=== PATIENT | male | born 1970 | race Caucasian/White ===

== ENCOUNTER → 2017-05-05 08:58 | Outpatient (POV) | payer BC, SELFPAY ==
[2017-05-05 10:14] LABS: Basophils # 0.1 K/mm3 (0-0.2); Basophils % 0.9 % (0.1-2.0); Eosinophils # 0.2 K/mm3 (0.0-0.4); Eosinophils % 3.1 % (0.1-12.0); Hematocrit 42.9 % (42.0-52.0); Hemoglobin 14.8 g/dL (14.1-18.0); Lymphocytes # 1.4 K/mm3 (0.7-4.5); Lymphocytes % 24.8 K/mm3 (10-50); Mean Corpuscular HGB Conc 34.4 g/dL (31.8-35.4); Mean Corpuscular Hemoglobin 29.5 pg (27.0-31.2); Mean Corpuscular Volume 85.7 fl (80-94); Monocytes # 0.3 K/mm3 (0.1-1.0); Monocytes % 5.7 % (1.7-9.3); Neutrophils # 3.7 K/mm3 (1.8-7.8); Neutrophils % 65.5 % (37.0-80.0); Platelet Count 181 K/mm3 (142-424); Red Blood Count 5.01 M/mm3 (4.60-6.20); Red Cell Distribution Width 13.5 % (11.5-17.5); White Blood Count 5.6 K/mm3 (4.8-10.8)
[2017-05-05 11:21] LABS: Alanine Aminotransferase 54 U/L (12-78); Albumin Level 4.2 gm/dL (3.4-5.0); Albumin/Globulin Ratio 1.4 (1.1-1.8); Alkaline Phosphatase 54 U/L (46-116); Amylase 144 U/L (25-125); Anion Gap 12.3 mEq/L (5-15); Aspartate Amino Transferase 34 U/L (15-37); Bilirubin,Total 0.5 mg/dL (0.2-1.0); Blood Urea Nitrogen 15 mg/dL (7-18); Carbon Dioxide 29 mmol/L (21.0-32.0); Chloride 102 mmol/L (98-107); Chol/HDL Ratio 6.8 (1-3.5); Cholesterol 251 mg/dL (140-200); Creatinine,Serum 1.25 mg/dL (0.70-1.30); Estimated Glomerular Filt Rate 62 ml/min (>60); GFR (African American) 76 ML/MIN (>60); Glucose 171 mg/dL (74-106); HDL Cholesterol 37 mg/dL (27-67); Lipase 191 u/L (73-393); Potassium 4.3 mmoL/L (3.5-5.1); Sodium 139 mmol/L (136-145); Total Protein,Serum 7.2 gm/dL (6.4-8.2)
[2017-05-05 11:22] LABS: Triglycerides 531 mg/dL (30-200)
== END ==
PROVIDERS: PCP Nurse Practitioner Family; Visit Provider Nurse Practitioner Acute Care
DX: R94.5 Abnormal results of liver function studies (principal)
CPT/HCPCS: 36415; 80053; 80061; 82150; 83690; 85025

== ENCOUNTER → 2017-05-09 10:15 | Outpatient (CLI) | payer BC, SELFPAY ==
[2017-05-09 10:48] LABS: Hemoglobin A1C 6.7 % (0.0-7.0)
== END ==
PROVIDERS: PCP Nurse Practitioner Family; Visit Provider Nurse Practitioner Family
DX: E11.9 Type 2 diabetes mellitus without complications (principal)
CPT/HCPCS: 36415; 83036

== ENCOUNTER → 2017-12-16 08:08 | Outpatient (CLI) | payer BC, SELFPAY ==
[2017-12-16 09:21] LABS: Albumin Level 3.8 gm/dL (3.4-5.0); Albumin/Globulin Ratio 1.2 (1.1-1.8); Alkaline Phosphatase 73 U/L (46-116); Amylase 119 U/L (25-125); Bilirubin,Total 0.8 mg/dL (0.2-1.0); Blood Urea Nitrogen 14 mg/dL (7-18); Calcium 9.3 mg/dL (8.5-10.1); Carbon Dioxide 26 mmol/L (21.0-32.0); Chloride 103 mmol/L (98-107); Chol/HDL Ratio 10.1 (1-3.5); Cholesterol 282 mg/dL (140-200); Estimated Glomerular Filt Rate 59 ml/min (>60); GFR (African American) 72 ML/MIN (>60); Globulin 3.1 gm/dl (1.3-3.2); HDL Cholesterol 28 mg/dL (27-67); Lipase 199 u/L (73-393); Sodium 138 mmol/L (136-145); Total Protein,Serum 6.9 gm/dL (6.4-8.2)
[2017-12-16 09:27] LABS: Hemoglobin A1C 9.9 % (0.0-7.0)
[2017-12-16 09:59] LABS: Triglycerides 1216 mg/dL (30-200)
[2017-12-16 10:11] LABS: Glucose 169 mg/dL (74-106)
[2017-12-16 10:14] LABS: Alanine Aminotransferase 126 U/L (12-78); Aspartate Amino Transferase 70 U/L (15-37)
== END ==
PROVIDERS: PCP Internal Medicine Adolescent Medicine; Visit Provider Nurse Practitioner Family
DX: E78.1 Pure hyperglyceridemia (principal); E11.9 Type 2 diabetes mellitus without complications; K76.0 Fatty (change of) liver, not elsewhere classified; R74.8 Abnormal levels of other serum enzymes
CPT/HCPCS: 36415; 80053; 80061; 82150; 83036; 83690

== ENCOUNTER → 2018-05-18 08:08 | Outpatient (CLI) | payer BC, SELFPAY ==
[2018-05-18 09:25] LABS: Hemoglobin A1C 6.6 % (0.0-7.0)
[2018-05-18 09:56] LABS: Alanine Aminotransferase 62 U/L (12-78); Albumin Level 4.2 gm/dL (3.4-5.0); Albumin/Globulin Ratio 1.4 (1.1-1.8); Alkaline Phosphatase 53 U/L (46-116); Anion Gap 12.3 mEq/L (5-15); Aspartate Amino Transferase 41 U/L (15-37); Bilirubin,Total 0.5 mg/dL (0.2-1.0); Blood Urea Nitrogen 18 mg/dL (7-18); Calcium 9.5 mg/dL (8.5-10.1); Carbon Dioxide 29 mmol/L (21.0-32.0); Chloride 103 mmol/L (98-107); Chol/HDL Ratio 7.1 (1-3.5); Cholesterol 177 mg/dL (140-200); Estimated Glomerular Filt Rate 59 ml/min (>60); GFR (African American) 72 ML/MIN (>60); Globulin 2.9 gm/dl (1.3-3.2); Glucose 136 mg/dL (74-106); HDL Cholesterol 25 mg/dL (27-67); LDL Cholesterol 79 mg/dL (0-130); Potassium 4.3 mmoL/L (3.5-5.1); Sodium 140 mmol/L (136-145); Total Protein,Serum 7.1 gm/dL (6.4-8.2); Triglycerides 367 mg/dL (30-200); VLDL Cholesterol 73 mg/dL (0-40)
== END ==
PROVIDERS: Visit Provider Nurse Practitioner Family
DX: E78.2 Mixed hyperlipidemia (principal); E11.9 Type 2 diabetes mellitus without complications; I10 Essential (primary) hypertension
CPT/HCPCS: 36415; 80053; 80061; 83036

== ENCOUNTER → 2019-02-19 08:27 | Outpatient (CLI) | payer BC, SELFPAY ==
[2019-02-19 09:54] LABS: Basophils # 0.1 K/mm3 (0-0.2); Basophils % 0.9 % (0.1-2.0); Eosinophils # 0.2 K/mm3 (0.0-0.4); Eosinophils % 3.3 % (0.1-12.0); Hematocrit 42.6 % (42.0-52.0); Hemoglobin 14.2 g/dL (14.1-18.0); Lymphocytes # 1.9 K/mm3 (0.7-4.5); Lymphocytes % 29.7 % (10-50); Mean Corpuscular HGB Conc 33.2 g/dL (31.8-35.4); Mean Corpuscular Hemoglobin 29.3 pg (27.0-31.2); Mean Corpuscular Volume 88.2 fl (80-94); Monocytes # 0.3 K/mm3 (0.1-1.0); Monocytes % 4.4 % (1.7-9.3); Neutrophils # 3.9 K/mm3 (1.8-7.8); Neutrophils % 61.8 % (37.0-80.0); Platelet Count 196 K/mm3 (142-424); Red Blood Count 4.83 M/mm3 (4.60-6.20); Red Cell Distribution Width 15.1 % (11.5-17.5); White Blood Count 6.3 K/mm3 (4.8-10.8)
[2019-02-19 10:55] LABS: Blood Urea Nitrogen 14 mg/dL (7-18); Calcium 9.3 mg/dL (8.5-10.1); Glucose 177 mg/dL (74-106); Lipase 147 u/L (73-393)
[2019-02-19 10:57] LABS: Anion Gap 14.3 mEq/L (5-15); Bilirubin,Total 0.8 mg/dL (0.2-1.0); Carbon Dioxide 25 mmol/L (21.0-32.0); Chloride 104 mmol/L (98-107); Creatinine,Serum 1.32 mg/dL (0.70-1.30); Estimated Glomerular Filt Rate 58 ml/min (>60); GFR (African American) 70 ML/MIN (>60); Potassium 4.3 mmoL/L (3.5-5.1); Sodium 139 mmol/L (136-145)
[2019-02-19 10:58] LABS: Alanine Aminotransferase 78 U/L (12-78); Alkaline Phosphatase 53 U/L (46-116); Aspartate Amino Transferase 83 U/L (15-37); Chol/HDL Ratio 5.6 (1-3.5); Cholesterol 151 mg/dL (140-200); HDL Cholesterol 27 mg/dL (27-67); Triglycerides 432 mg/dL (30-200)
[2019-02-19 10:59] LABS: Albumin/Globulin Ratio 1.4 (1.1-1.8); Amylase 109 U/L (25-115); Globulin 2.9 gm/dl (1.3-3.2); Total Protein,Serum 6.9 gm/dL (6.4-8.2)
[2019-02-19 14:06] LABS: Hemoglobin A1C 7.5 % (0.0-7.0)
== END ==
PROVIDERS: Visit Provider Nurse Practitioner Family
DX: Z00.00 Encounter for general adult medical examination without abnormal findings (principal); E78.1 Pure hyperglyceridemia; E11.9 Type 2 diabetes mellitus without complications; K86.1 Other chronic pancreatitis; K76.0 Fatty (change of) liver, not elsewhere classified
CPT/HCPCS: 36415; 80053; 80061; 82150; 83036; 83690; 85025

== ENCOUNTER → 2019-06-21 09:45 | Outpatient (CLI) | payer BC, SELFPAY ==
[2019-06-21 10:31] LABS: Basophils # 0.1 K/mm3 (0-0.2); Basophils % 1.1 % (0.1-2.0); Eosinophils # 0.2 K/mm3 (0.0-0.4); Eosinophils % 3.1 % (0.1-12.0); Hematocrit 43.7 % (42.0-52.0); Hemoglobin 14.6 g/dL (14.1-18.0); Lymphocytes # 1.4 K/mm3 (0.7-4.5); Lymphocytes % 29.5 % (10-50); Mean Corpuscular HGB Conc 33.5 g/dL (31.8-35.4); Mean Corpuscular Hemoglobin 28.3 pg (27.0-31.2); Mean Corpuscular Volume 84.6 fl (80-94); Mean Platelet Volume 8.1 fl (7.4-10.4); Monocytes # 0.3 K/mm3 (0.1-1.0); Monocytes % 5.3 % (1.7-9.3); Neutrophils % 61.2 % (37.0-80.0); Platelet Count 222 K/mm3 (142-424); Red Blood Count 5.16 M/mm3 (4.60-6.20); Red Cell Distribution Width 14.8 % (11.5-17.5); White Blood Count 4.8 K/mm3 (4.8-10.8)
[2019-06-21 11:28] LABS: Chloride 100 mmol/L (98-107); Potassium 4.4 mmoL/L (3.5-5.1); Sodium 139 mmol/L (136-145)
[2019-06-21 11:31] LABS: Alanine Aminotransferase 96 U/L (12-78); Alkaline Phosphatase 62 U/L (38-126); Amylase 82 U/L (30-110); Anion Gap 17.4 mEq/L (5-15); Aspartate Amino Transferase 106 U/L (17-59); Blood Urea Nitrogen 18 mg/dl (9-20); Calcium 10.4 mg/dl (8.4-10.2); Carbon Dioxide 26 mmol/L (22.0-30.0); Estimated Glomerular Filt Rate 72 ml/min (>60); GFR (African American) 87 ML/MIN (>60); Glucose 184 mg/dl (74-100); HDL Cholesterol 27 mg/dl (40-60); Lipase 127 U/L (23-300)
[2019-06-21 11:32] LABS: Albumin Level 4.5 g/dl (3.5-5.0); Albumin/Globulin Ratio 1.8 (1.1-1.8); Chol/HDL Ratio 7.8 (1-3.5); Cholesterol 210 mg/dl (140-200); Globulin 2.5 g/dL (1.3-3.2)
[2019-06-21 11:41] LABS: Hemoglobin A1C 9.4 % (4.0-6.0)
[2019-06-21 11:43] LABS: Direct LDL Cholesterol 44.05 mg/dL (100-129)
[2019-06-22 10:27] LABS: Triglycerides 888 mg/dl (30-150)
== END ==
PROVIDERS: Visit Provider Nurse Practitioner Family
DX: E78.1 Pure hyperglyceridemia (principal); E11.9 Type 2 diabetes mellitus without complications; R74.8 Abnormal levels of other serum enzymes; K86.1 Other chronic pancreatitis
CPT/HCPCS: 36415; 80053; 80061; 82150; 83036; 83690; 85025

== ENCOUNTER → 2019-10-19 08:08 | Outpatient (POV) | payer BC, SELFPAY | PROVIDERS: PCP Internal Medicine Adolescent Medicine; Visit Provider Physician Assistant | DX: Z00.00 Encounter for general adult medical examination without abnormal findings (principal) ==

== ENCOUNTER → 2020-02-01 08:04 | Outpatient (POV) | payer BC, SELFPAY | PROVIDERS: Visit Provider Dermatology | DX: Z00.00 Encounter for general adult medical examination without abnormal findings (principal) ==

== ENCOUNTER 2020-03-26 10:40 | Emergency (ER) | payer BC, SELFPAY ==
[2020-03-26 11:00] VITALS: BP 136/95; PULSE 64; RESP 16; TEMP 37.4; O2SAT 96; BMI 32.1
--- NOTE | 2020-03-26 11:12 | HMH.EDUTC ---
[facility] [place] Disposition Clinical Impression: Exposure to COVID-19 virus Sinusitis Qualifiers: Sinusitis location: maxillary Chronicity: acute Recurrence: non-recurrent Qualified Code(s): J01.00 - Acute maxillary sinusitis, unspecified Disposition: Home, Self-Care Condition on Discharge: Good Instructions: Sinusitis, DI for Sinusitis, Preventing the Spread of Coronavirus Discharge Instructions Additional Instructions: isolate until test results are known Start antibiotic patient to take as ordered for a full length of time even if you feel better. Sinus infections do not get better overnight. It may take 2-3 days to notice much improvement so be sure to use conservative measures as discussed for symptoms. Flonase 1 spray each nostril daily to help with nasal congestion, sinus and ear pressure/information Increase fluids Humidifier/vaporizer as needed Tylenol and ibuprofen as needed for fever or pain. If symptoms do not improve or get worse return or be seen in the ER Follow-up with primary care this week Prescriptions: Fluticasone Propionate [Flonase 50mcg nasal spray 16gm] 1 spr NS DAILY 14 Days #1 bottle Transmission Status: Pending to [facility] #[id number] Azithromycin [Zithromax 250mg tab] 250 mg PO DIRECTED #6 tab Transmission Status: Pending to [facility] #[id number] Referrals: Calin Mora MD [Primary Care Provider] - Forms: Work/School Release Time of Disposition: 11:20 Medical Decision Making - Sarthak Inquiry Pt receiving controlled substance: No Vital Signs: 03/26/20 11:00 Temperature 99.4 F Temperature Source Oral Pulse Rate [Right Brachial] 64 Respiratory Rate 16 Blood Pressure [Right Arm] 136/95 H Blood Pressure Mean [Right Arm] 108 Blood Pressure Source [Right Arm] Automatic Cuff Blood Pressure Position [Right Arm] Sitting 02 Sat by Pulse Oximetry 96 Oxygen Delivery Method Room Air Orders (Tests/Meds): ORDERS Category Date Time Status Covid-19 Nasal PCR ([facility]) Routine Lab 03/26/20 11:16 Ordered [facility] [place] HPI - General Chief complaint: Urgent [facility] Stated complaint: covid exposure with symthoms Time Seen by Provider: 03/26/20 11:12 Mode of Arrival: Ambulatory Source of Information: Patient Limitations: No Limitations Description of Symptoms (Recalled from Triage Doc. by RN): PATIENT REQUESTING COVID TEST. REPORTS FLU-LIKE SYMPTOMS HEENT Symptoms (Recalled from RN notes): No Resp Symptoms (Recalled from RN notes): No Skin Symptoms (Recalled from RN notes): No MS Symptoms (Recalled from RN notes): No Functional Status (Recalled from RN notes): WNL - History of Present Illness Provider Complaint: 49 yr old male presnets for covid test. pt had a exposer both children are positive. C/O sore throat, chills, slight soa with cough, yellow nasal draiange,chest congestion and tiredness. - Related Data Previous Rx's Medication Instructions Recorded Azithromycin [Zithromax 250mg 250 mg PO DIRECTED #6 tab 03/26/20 tab] Fluticasone Propionate [Flonase 1 spr NS DAILY 14 Days #1 bottle 03/26/20 50mcg nasal spray 16gm] Allergies Allergy/AdvReac Type Severity Reaction Status Date / Time choline fenofibrate Allergy Unknown NA-NAUSEA Verified 03/26/20 11:11 [From Trilipix] pentazocine [From Talwin] Allergy Unknown S-DIFF. Verified 03/26/20 11:11 BREATHING - Worker's Comp Is this a Worker's Comp case?: No [facility] History - Hepatitis A Screen Drug use history?: No High risk sexual behaviors?: No History of sexually transmitted infection?: No Currently employed?: No Childcare worker?: No Do you have indoor plumbing?: Yes Do you have electricity?: Yes Attestation statement:: This patient has been screened for Hepatitis A risk factors. I have reviewed the patient's past medical history: Yes - Social History Alcohol Intake: never Occupational Status: other ROS Obtained: Yes Systems reviewed as appropriate & no additional c
[2020-03-26 11:18] LABS: UTC Influenza A Antigen Negative (Negative)
[2020-03-26 11:19] LABS: UTC Influenza B Antigen Negative (Negative)
[2020-03-26 11:24] VITALS: BP 136/95; PULSE 64; RESP 16; TEMP 37.4; O2SAT 96
--- NOTE | 2020-03-26 21:06 | PC.NURSE ---
PATIENT NOTIFIED OF POSITIVE COVID TEST
== END 2020-03-26 11:29 | disposition home or self-care (01) ==
PROVIDERS: Emergency Provider Nurse Practitioner Family; PCP Internal Medicine Adolescent Medicine
DX: U07.1 COVID-19 (principal)
CPT/HCPCS: 87804; 99201; U0003

== ENCOUNTER → 2020-03-28 15:09 | Outpatient (CLI) | payer BC, SELFPAY ==
--- NOTE | 2020-03-28 15:14 | XR_ITS ---
PROCEDURE: XR CHEST PORTABLE CLINICAL HISTORY: COVID 19 Shortness of breath, cough COMPARISON: No exams were available for comparison FINDINGS: The cardiomediastinal silhouette and pulmonary vascularity are within normal limits. There is patchy infiltrate present in the right upper and right lower lobe consistent with pneumonia having a somewhat ground-glass attenuation which may be seen with Covid19 pneumonia. There may be some patchy infiltrate also in the left lower lobe. No acute bony abnormalities. IMPRESSION: Right upper and right lower lobe pneumonia with possible pneumonia in the left lower lobe Dictated by: Maximiliano Estrada 03/28/2020 15:51 Maximiliano Estrada in [place] 03/28/2020 15:51
== END ==
PROVIDERS: PCP Nurse Practitioner Family; Visit Provider Nurse Practitioner Family
DX: Z20.828 Contact with and (suspected) exposure to other viral communicable diseases (principal); U07.1 COVID-19; R06.02 Shortness of breath
CPT/HCPCS: 71045

== ENCOUNTER 2020-04-04 15:06 | Observation (INO) | payer BC, SELFPAY ==
[2020-04-04 14:20] LABS: Basophils # 0.2 K/mm3 (0-0.2); Basophils % 1.3 % (0.1-2.0); Eosinophils # 0.3 K/mm3 (0.0-0.4); Hematocrit 45.2 % (42.0-52.0); Hemoglobin 16.8 g/dL (14.1-18.0); Lymphocytes # 1.9 K/mm3 (0.7-4.5); Lymphocytes % 13.4 % (10-50); Mean Corpuscular HGB Conc 37.1 g/dL (31.8-35.4); Mean Corpuscular Hemoglobin 30.8 pg (27.0-31.2); Mean Platelet Volume 8.2 fl (7.4-10.4); Monocytes # 0.5 K/mm3 (0.1-1.0); Monocytes % 3.4 % (1.7-9.3); Neutrophils # 11.6 K/mm3 (1.8-7.8); Platelet Count 522 K/mm3 (142-424); Red Blood Count 5.45 M/mm3 (4.60-6.20); Red Cell Distribution Width 15.4 % (11.5-17.5); White Blood Count 14.5 K/mm3 (4.8-10.8)
[2020-04-04 14:25] LABS: Chloride 93 mmol/L (98-107); Potassium 4.3 mmoL/L (3.5-5.1); Sodium 131 mmol/L (136-145)
[2020-04-04 14:28] LABS: Alanine Aminotransferase 43 U/L (12-78); Albumin Level 4.1 g/dl (3.5-5.0); Albumin/Globulin Ratio 1.1 (1.1-1.8); Alkaline Phosphatase 99 U/L (38-126); Anion Gap 15.3 mEq/L (5-15); Aspartate Amino Transferase 72 U/L (17-59); Bilirubin,Total 1.2 mg/dl (0.2-1.3); Blood Urea Nitrogen 28 mg/dl (9-20); Calcium 9.9 mg/dl (8.4-10.2); Carbon Dioxide 27 mmol/L (22.0-30.0); Estimated Glomerular Filt Rate 71 ml/min (>60); GFR (African American) 86 ML/MIN (>60); Globulin 3.9 g/dL (1.3-3.2); Glucose 397 mg/dl (74-100)
[2020-04-04 14:32] LABS: Hemoglobin A1C 10.2 % (4.0-6.0)
[2020-04-04 14:51] LABS: Acetone, Serum (Rapid) None Detected (None Detect)
[2020-04-04 15:40] VITALS: BP 133/79; PULSE 80; RESP 18; TEMP 36.4; O2SAT 96; BMI 29.7
--- NOTE | 2020-04-04 15:44 | XR_ITS ---
PROCEDURE: XR CHEST 2V CLINICAL HISTORY: pneumonia Follow-up pneumonia, history of Covid19 COMPARISON: CR XR CHEST PORTABLE from 03/28/2020 FINDINGS: The cardiomediastinal silhouette and pulmonary vascularity are within normal limits. Atelectasis or infiltrate is present in the right lower lobe not significantly changed. Faint nodular densities are present in the right upper lobe and could be due to nodular areas of consolidation or pulmonary nodules. There is some nodularity also noted in the left perihilar region. There is also faint infiltrate in the left lower lobe not significantly changed. No acute bony findings. IMPRESSION: Persistent right lower lobe atelectasis and/or infiltrate with nodularity in the right upper lobe and infiltrate in the right lower lobe overall not significantly changed. Follow-up suggested. If the nodular areas do not resolve then CT will be needed for further evaluation. Dictated by: Maximiliano Estrada MD 04/04/2020 21:45 Maximiliano Estrada MD in [place] 04/04/2020 21:45
--- NOTE | 2020-04-04 16:04 | HMH.PHAVTE ---
[facility] Pharmacy VTE Monitoring - Patient Demographics Admission date: 04/04/20 Report Date: 04/04/20 Time: 16:04 Allergies/Adverse Reactions: Patient Allergies choline fenofibrate [From Trilipix] Allergy (Unknown, Verified 03/26/20 11:11) NA-NAUSEA pentazocine [From Talwin] Allergy (Unknown, Verified 03/26/20 11:11) S-DIFF. BREATHING Height: 1.88 m Weight: 104.893 kg - VTE Risk Labs: VTE Related Lab Results Hgb 16.8 g/dL (14.1-18.0) 04/04/20 14:03 Hct 45.2 % (42.0-52.0) 04/04/20 14:03 Plt Count 522 K/mm3 (142-424) H 04/04/20 14:03 BUN 28 mg/dl (9-20) H 04/04/20 14:03 Creatinine 1.10 mg/dl (0.66-1.25) 04/04/20 14:03 - Prophylaxis Types of VTE Prophylaxis: TEDS Knee High Location of Applied Device: Bilateral Lower Extremeties
--- NOTE | 2020-04-04 16:30 | PC.NURSE ---
Dr. Austin aware of IgG and IgM positive. Nasal swab ordered.
[2020-04-04 17:00] VITALS: O2SAT 96
--- NOTE | 2020-04-04 17:05 | HMH.HP ---
*Admission Date: 04/04/20 <Elizabeth Jean-Baptiste 04/04/20 17:25> *Chief complaint: weakness, polyuria, polydipsia, dizziness <Elizabeth Jean-Baptiste 04/04/20 17:25> *History of present illness: 49 year old male with a h/o DM on metformin, recurrent pancreatitis r/t hypertriglyceridemia, non alcoholic fatty liver disease, HTN, and anxiety who was diagnosed with COVID-19 and subsequent pneumonia presented to PCP office with increased weakness, dizziness, polyuria, polydipsia and FSBS >400. Patient dx with COVID-19 at [facility] on 03/26 following a week of symptoms and known exposure. He had worsening shortness of breath and persistent fevers, CXR on 03/28 showed RUL, RLL and LLL pneumonia. He was started on levaquin and dexamethasone. Patient reports shortness of breath and chest congestion have improved, fevers have resolved. He has developed increased weakness and dizziness over the last few days. Feels foggy and not safe to drive. FSBS > 400 for several days, urinating every hour and feels dry as a bone. Seen in the office with approx 15 pound weight loss, low normal b/p and glucose 400. A1c 10.2. BUN 28, NA 131, serum acetone negative, WBC 14- likely related to steroids. Patient was admitted for IV hydration, insulin initiation and further evaluation. <Elizabeth Jean-Baptiste 04/04/20 17:25> [facility] History I have reviewed the patient's past medical history: Yes <Elizabeth Jean-Baptiste 04/04/20 17:25> Medical History: Reports:: Hyperlipidemia, Hypertension <Elizabeth Jean-Baptiste 04/04/20 17:25> *Have you ever received a pneumonia vaccine?: No <Elizabeth Jean-Baptiste 04/04/20 17:25> *Have you received a flu vaccine this season?: No <Elizabeth Jean-Baptiste 04/04/20 17:25> Other Medical History: Reports: Liver Disease <Elizabeth Jean-Baptiste 04/04/20 17:25> Comment:: recurrent pancreatitis <EstivenElizabeth 04/04/20 17:25> Other Surgeries: Yes: Cholecystectomy, Other (nasal septal repair, hydrocele and inguinal hernia repair) <EstivenElizabeth 04/04/20 17:25> - *Social History Last grade of school completed: Advanced degree <[facility] 04/04/20 17:25> Smoking Status: Unknown if ever smoked <[facility] 04/04/20 17:25> Alcohol Intake: never <Elizabeth Jean-Baptiste 04/04/20 17:25> *Occupational Status:: other <[facility] 04/04/20 17:25> *Travel in the last 8 weeks: None <[facility] 04/04/20 17:25> Family Hx:: Coronary Artery Disease, Diabetes, Hypertension <[facility] 04/04/20 17:25> Review of Systems - Review of Systems Review of systems:: pertinent systems reviewed and negative unless documented below <Elizabeth Jean-Baptiste 04/04/20 17:25> - Constitutional Reports fatigue, Reports lack of energy, Reports malaise, Reports weakness, Reports weight loss <[facility] 04/04/20 17:25> - *Respiratory Reports cough <[facility] 04/04/20 17:25> - *Neurologic Reports dizziness, Reports weakness, Reports other ( foggy ) <[facility] 04/04/20 17:25> Meds Home Medications Medication Instructions Recorded Confirmed Type Atorvastatin Calcium [Lipitor 40mg 40 mg PO DAILY 04/04/20 04/04/20 History Tab] Fenofibrate 160 mg PO DAILY 04/04/20 04/04/20 History Metformin HCl [Metformin 1000mg 1,000 mg PO BID 04/04/20 04/04/20 History Tablets] lisinopriL [Lisinopril 5mg 5 mg PO DAILY 04/04/20 04/04/20 History Tablet] <Boris Austin - 04/04/20 17:54> Allergies Allergy/AdvReac Type Severity Reaction Status Date / Time choline fenofibrate Allergy Unknown NA-NAUSEA Verified 03/26/20 11:11 [From Trilipix] pentazocine [From Talwin] Allergy Unknown S-DIFF. Verified 03/26/20 11:11 BREATHING <Boris Austin - 04/04/20 17:54> Exam Vital signs and Labs for Last 24 Hours: Temp Pulse Resp BP Pulse Ox 97.6 F 80 18 133/79 96 04/04/20 15:40 04/04/20 15:40 04/04/20 15:40 04/04/20 15:40 04/04/20 15:40 Laboratory Results - last 24 hr 04/04/20 14:03: Sodium 131 L, Potassium 4.3, Chloride 93 L, Carbon Dioxide 27, Anion Gap 15.3 H, BUN 28 H, Creatinine 1.10
[2020-04-04 17:20] LABS: Coronavirus 19 IgG Antibody Positive (Negative); Coronavirus 19 IgM Antibody Positive (Negative)
[2020-04-04 19:10] VITALS: BP 121/69; PULSE 89; RESP 16; TEMP 37.1; O2SAT 94
[2020-04-04 20:32] LABS: POC Glucose,Bedside 292 (70-110)
[2020-04-05] VITALS: BP 107/67; PULSE 67; RESP 16; TEMP 36.4; O2SAT 95
[2020-04-05 03:34] VITALS: BP 106/65; PULSE 69; RESP 16; TEMP 36.8; O2SAT 95
--- NOTE | 2020-04-05 03:36 | PC.NURSE ---
Pt is A&O x4 and has slept well throughout the night. Patient expressed wanting to learn about his new insulin regimen and how to administer properly. He was verbally taught and provided teach back on correct syringe use and placement. Pt has been on room air all shift with O2 around 95. Lungs sounds are diminished. Pt reports feeling better and hoping to go home today. VSS, call light in reach.
[2020-04-05 05:00] VITALS: BMI 30.2
[2020-04-05 06:10] LABS: POC Glucose,Bedside 274 (70-110)
[2020-04-05 07:29] LABS: Basophils # 0.1 K/mm3 (0-0.2); Basophils % 0.7 % (0.1-2.0); Eosinophils # 0.2 K/mm3 (0.0-0.4); Eosinophils % 2.4 % (0.1-12.0); Hematocrit 37.3 % (42.0-52.0); Lymphocytes # 1.6 K/mm3 (0.7-4.5); Lymphocytes % 21.7 % (10-50); Mean Corpuscular HGB Conc 35.5 g/dL (31.8-35.4); Mean Corpuscular Hemoglobin 29.4 pg (27.0-31.2); Mean Corpuscular Volume 82.6 fl (80-94); Mean Platelet Volume 8.2 fl (7.4-10.4); Monocytes # 0.3 K/mm3 (0.1-1.0); Neutrophils # 5.1 K/mm3 (1.8-7.8); Neutrophils % 71.2 % (37.0-80.0); Platelet Count 299 K/mm3 (142-424); Red Blood Count 4.51 M/mm3 (4.60-6.20); Red Cell Distribution Width 15.3 % (11.5-17.5); White Blood Count 7.2 K/mm3 (4.8-10.8)
[2020-04-05 07:35] LABS: Hemoglobin 13.2 g/dL (14.1-18.0)
[2020-04-05 07:42] LABS: Chloride 100 mmol/L (98-107); Potassium 4.2 mmoL/L (3.5-5.1); Sodium 132 mmol/L (136-145)
[2020-04-05 07:44] LABS: Blood Urea Nitrogen 19 mg/dl (9-20); Creatinine Clearance Estimated 152 mL/min (50-200); Estimated Glomerular Filt Rate 90 ml/min (>60); GFR (African American) 109 ML/MIN (>60)
[2020-04-05 07:45] LABS: Alanine Aminotransferase 43 U/L (12-78); Albumin Level 3.1 g/dl (3.5-5.0); Albumin/Globulin Ratio 1.1 (1.1-1.8); Alkaline Phosphatase 61 U/L (38-126); Anion Gap 7.2 mEq/L (5-15); Aspartate Amino Transferase 76 U/L (17-59); Bilirubin,Total 0.7 mg/dl (0.2-1.3); Carbon Dioxide 29 mmol/L (22.0-30.0); Globulin 2.9 g/dL (1.3-3.2); Glucose 277 mg/dl (74-100)
[2020-04-05 07:50] VITALS: BP 122/66; PULSE 70; RESP 20; TEMP 36.8; O2SAT 95
--- NOTE | 2020-04-05 07:50 | PC.NURSE ---
Called Lab @ 07 to verify status of COVID PCR, was told at this time pt was positive. Dr. Mora notified at 0749 of this and stated no worries not an infectious issue . House notified of these events. Pt is in Airborne and contact precautions.
[2020-04-05 07:51] LABS: Calcium 8.7 mg/dl (8.4-10.2)
[2020-04-05 08:00] VITALS: O2SAT 95
--- NOTE | 2020-04-05 08:28 | HMH.DCSUM ---
General - General Admission date:: 04/04/20 Discharge date: 04/05/20 HPI HPI: 49 year old male with a h/o DM on metformin, recurrent pancreatitis r/t hypertriglyceridemia, non alcoholic fatty liver disease, HTN, and anxiety who was diagnosed with COVID-19 and subsequent pneumonia presented to PCP office with increased weakness, dizziness, polyuria, polydipsia and FSBS >400. Patient dx with COVID-19 at [facility] on 03/26 following a week of symptoms and known exposure. He had worsening shortness of breath and persistent fevers, CXR on 03/28 showed RUL, RLL and LLL pneumonia. He was started on levaquin and dexamethasone. Patient reports shortness of breath and chest congestion have improved, fevers have resolved. He has developed increased weakness and dizziness over the last few days. Feels foggy and not safe to drive. FSBS > 400 for several days, urinating every hour and feels dry as a bone. Seen in the office with approx 15 pound weight loss, low normal b/p and glucose 400. A1c 10.2. BUN 28, NA 131, serum acetone negative, WBC 14- likely related to steroids. Patient was admitted for IV hydration, insulin initiation and further evaluation. Hospital Course Hospital Course: Patient was admitted, hydrated and felt much better almost immediately. He was started on glargine insulin at 10 units last night, tolerated this well and this morning his glucose levels are down in the 200 range. He is eating and drinking well with no respiratory distress, nausea or vomiting and feels much more energetic. Long discussion with patient about insulin, need for enhanced dietary control of his triglycerides and diabetic issues. Plan okay to discharge home today with insulin therapy as noted. We will add purified fish oil to his regimen for triglycerides and we will see him in short-term follow-up next week. Recommended dietary consultation which will happen before discharge and recommended checking glucose levels twice daily at home and following up in the office at that point. No further respiratory symptoms overnight. Breathing easily this morning. Objective Vital signs: Temp Pulse Resp BP Pulse Ox 98.2 F 70 20 122/66 95 04/05/20 07:50 04/05/20 07:50 04/05/20 07:50 04/05/20 07:50 04/05/20 07:50 no acute distress - *Routine HEENT Exam Head: Present: normocephalic Eye: Present: EOMI, PERRL ENT: Present: mucous membranes moist - *Routine Neck Exam Present: supple - *Routine Respiratory Exam Present: CTA bilaterally - *Routine Cardiovascular Exam Present: RRR - *Routine Abdominal Exam Present: soft, normoactive bowel sounds. Absent: tenderness - *Routine Extremities Exam Absent: cyanosis, clubbing, edema - *Routine Skin Exam Present: warm. Absent: rash - Detailed Eye Exam Eyelids: Bilateral normal inspection Results Labs on day of discharge: Labs from last 24 hours 04/05/20 04/05/20 04/05/20 07:03 07:03 06:04 WBC 7.2 D RBC 4.51 L Hgb 13.2 L D Hct 37.3 L MCV 82.6 MCH 29.4 MCHC 35.5 H RDW 15.3 Plt Count 299 D MPV 8.2 Neut % (Auto) 71.2 Lymph % (Auto) 21.7 [place] % (Auto) 4.0 Eos % (Auto) 2.4 Baso % (Auto) 0.7 Neut # (Auto) 5.1 Lymph # (Auto) 1.6 [place] # (Auto) 0.3 Eos # (Auto) 0.2 Baso # (Auto) 0.1 Sodium 132 L Potassium 4.2 Chloride 100 Carbon Dioxide 29 Anion Gap 7.2 BUN 19 D Creatinine 0.90 Estimated Creat Clear 152 Estimated GFR 90 Est GFR ( Amer) 109 D Glucose 277 H D POC Glucose 274 H Hemoglobin A1c Calcium 8.7 D Total Bilirubin 0.7 AST 76 H ALT 43 Alkaline Phosphatase 61 Total Protein 6.0 L Albumin 3.1 L D Globulin 2.9 Albumin/Globulin Ratio 1.1 Acetone Level SARS-CoV-2 IgG Ab (Rapid) SARS-CoV-2 IgM Ab (Rapid) 04/04/20 04/04/20 04/04/20 20:22 16:05 14:03 WBC 14.5 H RBC 5.45 Hgb 16.8 Hct 45.2 MCV
--- NOTE | 2020-04-05 08:29 | HMH.PHAINT ---
Medication reconciliation completed using pharmacy claims data.
--- NOTE | 2020-04-05 09:34 | PC.NURSE ---
[employer] Rope Maker educated pt on his diet. Pt was educated on how to administer insulin yesterday by this nurse and last night by Deborah Castro RN. Pt states he has no questions at this time about insulin. I told him to call back with any concerns or questions. Pt received pneumonia vaccine but not the flu vaccine due to having covid per Dr. Mora. Pt tolerated well. Given in L deltiod. Education given. Pt provided with discharge instructions, follow up appointment, and home meds. Pt verbalized understanding. IV removed with catheter intact. Koban and 4x4s applied.
--- NOTE | 2020-04-05 09:34 | DIET.NUTRFU ---
Nutrition Consult completed- pt given verbal and written diet education for DM and hypertriglyceridemia. Encouraged pt to f/u through OP counseling.
[2020-04-05 09:37] VITALS: BMI 30.2
== END 2020-04-05 09:33 | disposition home or self-care (01) ==
LOC: 2ND 15:13
PROVIDERS: Admitting Provider Internal Medicine Adolescent Medicine; PCP Nurse Practitioner Family; Visit Provider Internal Medicine Adolescent Medicine
DX: U07.1 COVID-19 (principal); J12.89 Other viral pneumonia; E11.9 Type 2 diabetes mellitus without complications; Z79.84 Long term (current) use of oral hypoglycemic drugs; Z79.899 Other long term (current) drug therapy
CPT/HCPCS: 36415; 71046; 80053; 82009; 82962; 83036; 85025; 86328; 90732; G0378; U0003

== ENCOUNTER → 2020-10-31 08:25 | Outpatient (CLI) | payer BC, SELFPAY ==
[2020-10-31 08:42] LABS: Basophils # 0.1 K/mm3 (0-0.2); Basophils % 1.3 % (0.1-2.0); Eosinophils # 0.2 K/mm3 (0.0-0.4); Eosinophils % 2.9 % (0.1-12.0); Hematocrit 43.1 % (42.0-52.0); Hemoglobin 15.3 g/dL (14.1-18.0); Lymphocytes # 1.6 K/mm3 (0.7-4.5); Lymphocytes % 28.1 % (10-50); Mean Corpuscular HGB Conc 35.4 g/dL (31.8-35.4); Mean Corpuscular Hemoglobin 28.3 pg (27.0-31.2); Mean Corpuscular Volume 79.8 fl (80-94); Mean Platelet Volume 8.4 fl (7.4-10.4); Monocytes # 0.2 K/mm3 (0.1-1.0); Monocytes % 4.3 % (1.7-9.3); Neutrophils # 3.6 K/mm3 (1.8-7.8); Neutrophils % 63.5 % (37.0-80.0); Platelet Count 237 K/mm3 (142-424); Red Cell Distribution Width 15.6 % (11.5-17.5); White Blood Count 5.7 K/mm3 (4.8-10.8)
[2020-10-31 09:03] LABS: Alanine Aminotransferase 62 U/L (12-78); Albumin Level 4.5 g/dl (3.5-5.0); Albumin/Globulin Ratio 1.7 (1.1-1.8); Alkaline Phosphatase 64 U/L (38-126); Amylase 72 U/L (30-110); Anion Gap 16.6 mEq/L (5-15); Aspartate Amino Transferase 82 U/L (17-59); Bilirubin,Total 0.9 mg/dl (0.2-1.3); Blood Urea Nitrogen 14 mg/dl (9-20); Calcium 9.4 mg/dl (8.4-10.2); Carbon Dioxide 20 mmol/L (22.0-30.0); Chloride 105 mmol/L (98-107); Chol/HDL Ratio 7.3 (1-3.5); Cholesterol 198 mg/dl (140-200); Estimated Glomerular Filt Rate 71 ml/min (>60); GFR (African American) 86 ML/MIN (>60); Globulin 2.6 g/dL (1.3-3.2); Glucose 265 mg/dl (74-100); HDL Cholesterol 27 mg/dl (40-60); Lipase 124 U/L (23-300); Potassium 4.6 mmoL/L (3.5-5.1); Sodium 137 mmol/L (136-145); Total Protein,Serum 7.1 g/dl (6.3-8.2)
[2020-10-31 09:11] LABS: Triglycerides 1413 mg/dl (30-150)
[2020-10-31 09:13] LABS: Direct LDL Cholesterol 32.84 mg/dL (100-129)
== END ==
PROVIDERS: Visit Provider Nurse Practitioner Family
DX: E11.9 Type 2 diabetes mellitus without complications (principal); I10 Essential (primary) hypertension; K86.1 Other chronic pancreatitis
CPT/HCPCS: 36415; 80053; 80061; 82150; 83036; 83690; 85025

== ENCOUNTER → 2020-11-13 14:53 | Outpatient (CLI) | payer BC, SELFPAY | PROVIDERS: PCP Nurse Practitioner Family; Visit Provider Nurse Practitioner Family | DX: Z71.3 Dietary counseling and surveillance (principal); E11.9 Type 2 diabetes mellitus without complications | CPT/HCPCS: 97802 ==

== ENCOUNTER → 2020-11-21 08:06 | Outpatient (CLI) | payer BC, SELFPAY ==
--- NOTE | 2020-11-21 08:21 | MR_ITS ---
PROCEDURE: MR ABDOMEN WO/W CON CLINICAL INDICATION: RECURRENT PANCREATITIS COMPARISON: MR ABC MRI-ABD W/WO from 01/31/2017 TECHNIQUE: Routine multiplanar multi echo sequences are performed without and with gadolinium enhancement. FINDINGS: The liver, spleen, adrenal glands, and pancreas has an unremarkable appearance. There is no stranding of the peripancreatic. No peripancreatic fluid collections. Unremarkable appearing aorta. No renal mass apparent. No hydronephrosis. There has been a prior cholecystectomy. Pre and post enhanced images are obtained. No pancreatic mass apparent MRCP: There has been a prior cholecystectomy. No biliary dilatation. Common bile duct and pancreatic duct are normal in caliber. No retained common duct stones or strictures IMPRESSION: Negative MRI of the abdomen. No evidence of pancreatitis or pancreatic mass or ductal dilatation. Prior cholecystectomy otherwise negative MRCP Dictated by: Maximiliano Estrada MD 11/23/2020 14:28 Maximiliano Estrada MD in [place] 11/23/2020 14:28
[2020-11-21 08:28] LABS: Chloride 104 mmol/L (98-107)
[2020-11-21 08:29] LABS: Potassium 4.3 mmoL/L (3.5-5.1); Sodium 139 mmol/L (136-145)
[2020-11-21 08:31] LABS: Alanine Aminotransferase 58 U/L (12-78); Albumin Level 4.5 g/dl (3.5-5.0); Albumin/Globulin Ratio 1.7 (1.1-1.8); Alkaline Phosphatase 53 U/L (38-126); Anion Gap 13.3 mEq/L (5-15); Aspartate Amino Transferase 55 U/L (17-59); Bilirubin,Total 0.6 mg/dl (0.2-1.3); Blood Urea Nitrogen 21 mg/dl (9-20); Carbon Dioxide 26 mmol/L (22.0-30.0); Estimated Glomerular Filt Rate 59 ml/min (>60); GFR (African American) 71 ML/MIN (>60); Globulin 2.6 g/dL (1.3-3.2); Total Protein,Serum 7.1 g/dl (6.3-8.2)
[2020-11-21 08:32] LABS: Calcium 9.6 mg/dl (8.4-10.2); Glucose 138 mg/dl (74-100)
== END ==
PROVIDERS: PCP Nurse Practitioner Family; Visit Provider Nurse Practitioner Family
DX: K85.90 Acute pancreatitis without necrosis or infection, unspecified (principal); E78.1 Pure hyperglyceridemia; R14.0 Abdominal distension (gaseous)
CPT/HCPCS: 36415; 74183; 76376; 80053; A9576

== ENCOUNTER → 2020-12-26 08:55 | Outpatient (POV) | payer BC, SELFPAY | PROVIDERS: Visit Provider Dermatology | DX: Z00.00 Encounter for general adult medical examination without abnormal findings (principal) ==

== ENCOUNTER → 2021-04-09 08:50 | Outpatient (CLI) | payer BC, SELFPAY ==
[2021-04-09 10:10] LABS: Chloride 103 mmol/L (98-107); Potassium 4.2 mmoL/L (3.5-5.1); Sodium 138 mmol/L (136-145)
[2021-04-09 10:12] LABS: Amylase 79 U/L (30-110); Blood Urea Nitrogen 14 mg/dl (9-20); Estimated Glomerular Filt Rate 71 ml/min (>60); GFR (African American) 86 ML/MIN (>60)
[2021-04-09 10:13] LABS: Alanine Aminotransferase 59 U/L (12-78); Albumin Level 4.5 g/dl (3.5-5.0); Albumin/Globulin Ratio 1.8 (1.1-1.8); Alkaline Phosphatase 51 U/L (38-126); Anion Gap 16.2 mEq/L (5-15); Aspartate Amino Transferase 82 U/L (17-59); Bilirubin,Total 0.6 mg/dl (0.2-1.3); Carbon Dioxide 23 mmol/L (22.0-30.0); Chol/HDL Ratio 5.5 (1-3.5); Cholesterol 160 mg/dl (140-200); Globulin 2.5 g/dL (1.3-3.2); Glucose 201 mg/dl (74-100); HDL Cholesterol 29 mg/dl (40-60); Lipase 172 U/L (23-300)
[2021-04-09 10:24] LABS: Direct LDL Cholesterol 47.27 mg/dL (100-129)
[2021-04-09 10:25] LABS: Triglycerides 581 mg/dl (30-150)
== END ==
PROVIDERS: Visit Provider Nurse Practitioner Family
DX: E11.9 Type 2 diabetes mellitus without complications (principal); E78.1 Pure hyperglyceridemia; K86.1 Other chronic pancreatitis; Z79.84 Long term (current) use of oral hypoglycemic drugs
CPT/HCPCS: 36415; 80053; 80061; 82150; 83036; 83690

== ENCOUNTER 2021-08-28 08:19 | Emergency (ER) | payer BC, SELFPAY ==
[2021-08-28] VITALS (7 sets, daily range): BP systolic 114–143; BP diastolic 65–97; PULSE 61–84; RESP 16; TEMP 36.6; O2SAT 93–98; BMI 32.7
--- NOTE | 2021-08-28 08:22 | PC.NURSE ---
ROSS Gaines at BS
--- NOTE | 2021-08-28 08:27 | CT_ITS ---
FINAL REPORT CLINICAL HISTORY: RLQ pain COMPARISON: January 03, 2017 FINDINGS: Technique: The patient was injected with intravenous contrast. Axial images through the abdomen and pelvis were performed. This study was performed with techniques to keep radiation doses as low as reasonably achievable (ALARA). Individualized dose reduction techniques using automated exposure control or adjustment of mA and/or kV according to the patient's size were employed. Abdomen: There is mild left base atelectasis or scarring. There is mild fatty infiltration of the liver. The liver has a mildly lobular contour which may represent cirrhosis. The portal vein is enlarged measuring 18 mm in diameter. The gallbladder is surgically absent. There is splenomegaly with the spleen measuring 15 cm in length. The adrenals are normal. The pancreas is unremarkable. There are several less than 3 mm bilateral nonobstructing renal stones. There is mild right hydronephrosis and hydroureter secondary to a 2 mm right UVJ stone . The aorta is normal in caliber. There is no free fluid or adenopathy. Pelvis: The appendix is normal. The urinary bladder is unremarkable. There is no free fluid or adenopathy. There are several phleboliths in the pelvis. Again noted is stranding of the small bowel mesentery. There is several borderline size lymph nodes which may represent mesenteric panniculitis or may be reactive IMPRESSION: Mild right hydronephrosis and hydroureter secondary to a 2 mm right UVJ stone. Small renal stones. Findings consistent with cirrhosis and portal hypertension. Reviewed, Interpreted and Dictated by Sage Sullivan III, MD Transcribed by Deidre English Authenticated by Sage Sullivan III, MD on 08/28/2021 09:55:49 AM [facility]
--- NOTE | 2021-08-28 08:36 | HMH.EDGENADL ---
ED Disposition Clinical Impression: Right kidney stone Disposition: Home, Self-Care Condition on Discharge: Good Instructions: DI for Kidney Stones Additional Instructions: You have been evaluated for right flank pain. Diagnosed with a 2 mm kidney stone. Please take ibuprofen every 4-6 hours. Take [place] for breakthrough pain. Zofran for nausea. Flomax will help dilate the ureter. Follow-up with urology, Dr. Omer. Return to the emergency department at once for any new or worsening symptoms, worsening pain, vomiting, fevers, other concerns. Prescriptions: Hydrocod/Acet 5/325 mg [[place] 5/325mg tablet] 1 tab PO Q6HP PRN #12 tab PRN Reason: Severe Pain Transmission Status: Received by [facility] #[id number] Tamsulosin HCl [Flomax 0.4mg capsule] 0.4 mg PO HS #5 cap Transmission Status: Received by [facility] #[id number] Ibuprofen [Ibuprofen 600mg Tablet] 600 mg PO Q6 PRN #30 tab PRN Reason: Mild Pain Transmission Status: Received by [facility] #[id number] Ondansetron [Zofran 4mg ODT] 4 mg PO TIDP PRN #12 tab PRN Reason: Nausea Transmission Status: Received by [facility] #[id number] Referrals: Calin Mora MD [Primary Care Provider] - Néstor Omer MD [Staff Physician] - Time of Disposition: 09:59 - Critical Care Critical Care Time: No Attestation: On 08/28/21, the high probability of a clinically significant, sudden or life threatening deterioration of the following system(s) required my full and direct attention, intervention and personal management. The time I documented below is in addition to time spent performing reported procedures but includes the following listed in this critical care notation. Medical Decision Making - Medical Records Medical records reviewed: Yes: I reviewed the patient's medical records. - Sarthak Inquiry Pt receiving controlled substance: No Vital Signs: 08/28/21 08:20 08/28/21 08:30 08/28/21 09:16 Temperature 97.9 F Temperature Source Oral Pulse Rate 83 71 Pulse Rate [Right Radial] 84 Respiratory Rate 16 Blood Pressure 134/95 H 129/85 Blood Pressure [Right Arm] 143/97 H Blood Pressure Mean [Right Arm] 112 Blood Pressure Source Automatic Cuff Automatic Cuff Blood Pressure Source [Right Arm] Automatic Cuff Blood Pressure Position Sitting Sitting Blood Pressure Position [Right Arm] Sitting 02 Sat by Pulse Oximetry 98 94 L 96 Oxygen Delivery Method Room Air Room Air Room Air 08/28/21 09:17 08/28/21 09:30 Temperature Temperature Source Pulse Rate 71 69 Pulse Rate [Right Radial] Respiratory Rate Blood Pressure 129/85 133/79 Blood Pressure [Right Arm] Blood Pressure Mean [Right Arm] Blood Pressure Source Automatic Cuff Automatic Cuff Blood Pressure Source [Right Arm] Blood Pressure Position Sitting Sitting Blood Pressure Position [Right Arm] 02 Sat by Pulse Oximetry 96 93 L Oxygen Delivery Method Room Air Room Air - Lab Data Lab Results 08/28/21 08:34: WBC 5.0, RBC 5.37, Hgb 15.1, Hct 43.9, MCV 81.7, MCH 28.2, MCHC 34.5, RDW 15.1, Plt Count 204, MPV 8.8, Neut % (Auto) 61.3, Lymph % (Auto) 28.9, [place] % (Auto) 5.1, Eos % (Auto) 2.5, Baso % (Auto) 2.2 H, Neut # (Auto) 3.1, Lymph # (Auto) 1.4, [place] # (Auto) 0.3, Eos # (Auto) 0.1, Baso # (Auto) 0.1 08/28/21 08:34: Sodium 136, Potassium 4.0, Chloride 102, Carbon Dioxide 27, Anion Gap 11.0, BUN 17, Creatinine 1.00, Estimated Creat Clear 145, Estimated GFR 79, Est GFR ( Amer) 96, Glucose 258 H, Calcium 9.6, Total Bilirubin 0.9, AST 63 H, ALT 52, Alkaline Phosphatase 66, Total Protein 6.8, Albumin 4.2, Globulin 2.6, Albumin/Globulin Ratio 1.6, Lipase 182 08/28/21 10:38: Urine Color Yellow, Urine Appearance Clear, Urine pH 6.0, Ur Specific Bar[place] 1.010, Urine Protein Negative, Urine Glucose (UA) 1+, Urine Ketones Negative, Urine Blood 2+, Urine Nitrate Negative, Urine Bilirubin Negative, Urine Urobilinogen 0.2, Ur Leukocyte Esterase Negat
[2021-08-28 08:51] LABS: Basophils # 0.1 K/mm3 (0-0.2); Basophils % 2.2 % (0.1-2.0); Eosinophils # 0.1 K/mm3 (0.0-0.4); Eosinophils % 2.5 % (0.1-12.0); Hematocrit 43.9 % (42.0-52.0); Hemoglobin 15.1 g/dL (14.1-18.0); Lymphocytes # 1.4 K/mm3 (0.7-4.5); Lymphocytes % 28.9 % (10-50); Mean Corpuscular HGB Conc 34.5 g/dL (31.8-35.4); Mean Corpuscular Hemoglobin 28.2 pg (27.0-31.2); Mean Corpuscular Volume 81.7 fl (80-94); Mean Platelet Volume 8.8 fl (7.4-10.4); Monocytes # 0.3 K/mm3 (0.1-1.0); Monocytes % 5.1 % (1.7-9.3); Neutrophils # 3.1 K/mm3 (1.8-7.8); Neutrophils % 61.3 % (37.0-80.0); Platelet Count 204 K/mm3 (142-424); Red Blood Count 5.37 M/mm3 (4.60-6.20); Red Cell Distribution Width 15.1 % (11.5-17.5)
[2021-08-28 08:53] LABS: Chloride 102 mmol/L (98-107); Sodium 136 mmol/L (136-145)
[2021-08-28 08:56] LABS: Alanine Aminotransferase 52 U/L (12-78); Albumin Level 4.2 g/dl (3.5-5.0); Albumin/Globulin Ratio 1.6 (1.1-1.8); Alkaline Phosphatase 66 U/L (38-126); Aspartate Amino Transferase 63 U/L (17-59); Bilirubin,Total 0.9 mg/dl (0.2-1.3); Blood Urea Nitrogen 17 mg/dl (9-20); Calcium 9.6 mg/dl (8.4-10.2); Carbon Dioxide 27 mmol/L (22.0-30.0); Creatinine Clearance Estimated 145 mL/min (50-200); Estimated Glomerular Filt Rate 79 ml/min (>60); GFR (African American) 96 ML/MIN (>60); Globulin 2.6 g/dL (1.3-3.2); Glucose 258 mg/dl (74-100); Lipase 182 U/L (23-300); Total Protein,Serum 6.8 g/dl (6.3-8.2)
--- NOTE | 2021-08-28 08:56 | PC.NURSE ---
notified rad of CT order, spoke with Yenny
--- NOTE | 2021-08-28 09:02 | PC.NURSE ---
patient to radiology with hvac field service technician by wheelchair
--- NOTE | 2021-08-28 09:15 | PC.NURSE ---
pt return from CT scan, pt sitting up on side of bed, reports no pain at this time. will continue to monitor
--- NOTE | 2021-08-28 09:49 | PC.NURSE ---
pt resting in bed, lights off in room, warm blanket given, family at BS. Will continue to monitor
--- NOTE | 2021-08-28 10:29 | PC.NURSE ---
patient ambulatory to restroom without complications
[2021-08-28 10:41] LABS: Microscopic, Urine URINE MICROSCOPIC (MICROSCOPIC)
[2021-08-28 10:43] LABS: Appearance,Urine CLEAR (Clear); Bilirubin,Urine Negative (Negative); Blood, Urine 2+ (Negative); Color,Urine YELLOW (Yellow); Glucose,Urine (UA) 1+ (Negative); Ketones,Urine Negative (Negative); Leukocyte Esterase,Urine Negative (Negative); Nitrate,Urine Negative (Negative); Protein,Urine Negative (Negative); Urobilinogen,Urine 0.2 EU/dl (0.2)
[2021-08-28 10:54] LABS: RBC,Urine Occasional #/hpf (0-3)
[2021-08-28 10:55] LABS: Bacteria,Urine Trace /lpf
== END 2021-08-28 11:11 | disposition home or self-care (01) ==
PROVIDERS: Emergency Provider Emergency Medicine; PCP Internal Medicine Adolescent Medicine
DX: N13.2 Hydronephrosis with renal and ureteral calculous obstruction (principal); M54.9 Dorsalgia, unspecified; R61 Generalized hyperhidrosis; R11.0 Nausea; I10 Essential (primary) hypertension; E78.5 Hyperlipidemia, unspecified; E11.9 Type 2 diabetes mellitus without complications; K76.9 Liver disease, unspecified; K86.1 Other chronic pancreatitis; Z79.4 Long term (current) use of insulin; Z79.51 Long term (current) use of inhaled steroids; Z79.84 Long term (current) use of oral hypoglycemic drugs; Z79.899 Other long term (current) drug therapy; Z79.1 Long term (current) use of non-steroidal anti-inflammatories (NSAID); Z88.8 Allergy status to other drugs, medicaments and biological substances; Z82.49 Family history of ischemic heart disease and other diseases of the circulatory system; Z83.3 Family history of diabetes mellitus
CPT/HCPCS: 74177; 80053; 81001; 83690; 85025; 96374; 96375; 96376; 99285; J2405; Q9967

== ENCOUNTER → 2021-12-25 14:51 | Outpatient (POV) | payer BC, SELFPAY | PROVIDERS: Visit Provider Dermatology | DX: Z00.00 Encounter for general adult medical examination without abnormal findings (principal) ==

== ENCOUNTER → 2021-12-26 08:21 | Outpatient (CLI) | payer BC, SELFPAY ==
[2021-12-26 09:23] LABS: Basophils # 0.1 K/mm3 (0-0.2); Basophils % 1.5 % (0.1-2.0); Eosinophils # 0.1 K/mm3 (0.0-0.4); Eosinophils % 2.5 % (0.1-12.0); Hematocrit 43.3 % (42.0-52.0); Hemoglobin 14.6 g/dL (14.1-18.0); Lymphocytes # 1.4 K/mm3 (0.7-4.5); Lymphocytes % 30.2 % (10-50); Mean Corpuscular HGB Conc 33.7 g/dL (31.8-35.4); Mean Corpuscular Hemoglobin 28.2 pg (27.0-31.2); Mean Corpuscular Volume 83.6 fl (80-94); Mean Platelet Volume 8.7 fl (7.4-10.4); Monocytes # 0.2 K/mm3 (0.1-1.0); Monocytes % 5.3 % (1.7-9.3); Neutrophils # 2.7 K/mm3 (1.8-7.8); Neutrophils % 60.5 % (37.0-80.0); Platelet Count 248 K/mm3 (142-424); Red Blood Count 5.18 M/mm3 (4.60-6.20); Red Cell Distribution Width 14.9 % (11.5-17.5); White Blood Count 4.5 K/mm3 (4.8-10.8)
[2021-12-26 09:44] LABS: Hemoglobin A1C 10.2 % (4.0-6.0)
[2021-12-26 10:20] LABS: Alanine Aminotransferase 59 U/L (12-78); Albumin/Globulin Ratio 1.5 (1.1-1.8); Alkaline Phosphatase 77 U/L (38-126); Anion Gap 11.2 mEq/L (5-15); Aspartate Amino Transferase 78 U/L (17-59); Bilirubin,Total 0.6 mg/dl (0.2-1.3); Blood Urea Nitrogen 14 mg/dl (9-20); Calcium 8.8 mg/dl (8.4-10.2); Carbon Dioxide 24 mmol/L (22.0-30.0); Chloride 105 mmol/L (98-107); Cholesterol 219 mg/dl (140-200); Estimated Glomerular Filt Rate 89 ml/min (>60); GFR (African American) 108 ML/MIN (>60); Globulin 2.7 g/dL (1.3-3.2); Glucose 218 mg/dl (74-100); HDL Cholesterol 20 mg/dl (40-60); Potassium 4.2 mmoL/L (3.5-5.1); Sodium 136 mmol/L (136-145); Total Protein,Serum 6.7 g/dl (6.3-8.2)
[2021-12-26 11:39] LABS: Triglycerides 2195 mg/dl (30-150)
[2021-12-27 14:59] LABS: Direct LDL Cholesterol 26 mg/dL (100-129)
== END ==
PROVIDERS: PCP Internal Medicine Adolescent Medicine; Visit Provider Dermatology
DX: Z79.899 Other long term (current) drug therapy (principal)
CPT/HCPCS: 36415; 80053; 80061; 83036; 85025

== ENCOUNTER 2022-03-06 09:45 | Emergency (ER) | payer BC, SELFPAY ==
[2022-03-06 11:05] VITALS: BP 133/79; PULSE 85; RESP 18; TEMP 36.7; O2SAT 96; BMI 32.5
--- NOTE | 2022-03-06 11:21 | EXP.UTC ---
Discharge Plan Disposition Patient Disposition: Home, Self-Care Condition: Good Prescriptions Prescriptions: New doxycycline hyclate 100 mg capsule 100 mg PO BID Qty: 20 0RF albuterol sulfate [Proventil HFA] 90 mcg/actuation HFA aerosol inhaler 1 inh inhalation Q6H PRN (Reason: shortness of breath or wheezing) Qty: 8.5 0RF No Action ibuprofen 600 MG tablet 600 mg PO Q6 PRN (Reason: Mild Pain) Qty: 30 0RF ondansetron 4 MG tablet,disintegrating 4 mg PO TIDP PRN (Reason: Nausea) Qty: 12 0RF tamsulosin 0.4 MG capsule 0.4 mg PO HS Qty: 5 0RF hydrocodone-acetaminophen 1 TAB tablet 1 tab PO Q6HP PRN (Reason: Severe Pain) Qty: 12 0RF atorvastatin 40 MG tablet 40 mg PO HS lisinopril 5 MG tablet 5 mg PO DAILY fenofibrate 160 MG tablet 160 mg PO DAILY albuterol sulfate 8.5 GM HFA aerosol inhaler 2 puffs PO Q6H PRN (Reason: Shortness Of Breath) fluticasone propionate 120 SPR/BOT bottle 1 spray NS DAILY metformin 500 MG tablet extended release 24 hr 1,000 mg PO BID insulin glargine 100 UNIT/ML insulin pen 10 units SQ DAILY icosapent ethyl 1 GM capsule 1 gm PO BID Qty: 120 0RF Rx Instructions: 2 caps bid Referrals Follow up/Referrals: Calin Mora MD [Primary Care Provider] - See instructions Activity Restrictions/Add. Instructions Additional Instructions/Restrictions: Start antibiotic today. Be sure to complete entire prescription even if feeling better Monitor temp. Tylenol every 4 hours as needed and / or ibuprofen every 6 hours as needed ( As long as your primary care physician has told you that it ok to take both. For fever/aches/pains ER if no less than 101 despite Tylenol or Motrin Humidifier/vaporizer or hot steamy shower Inhaler every 4-6 hours as needed like we discussed. If unsure how to use it, ask pharmacist to demonstrate how. Should help open airways and improve cough, wheezing, and shortness of breath Follow up IMMEDIATELY for new or worsening of symptoms OR no noticeable improvement over the next 48-72 hours. 911 immediately for any life threatening symptoms such as chest pain or difficulty breathing Clinical Impressions Clinical Impression: Sinusitis, Bronchitis Stand Alone Forms Stand Alone Forms: Work/School Release Instructions Patient Instructions: DI for Sinusitis, Sinusitis Discharge ED Provider: Farida Raymond [facility] [place] General Stated complaint: possible sinus infection Mode of Arrival: Ambulatory Source of Information: Patient Limitations: No Limitations Time Seen by Provider: 03/06/22 11:22 Description of Symptoms (Recalled from Triage Doc. by RN): PATIENT C/O COUGH, SINUS PRESSURE/DRAINAGE, CHEST CONGESTION, AND LOW-GRADE FEVER SINCE FRIDAY HEENT Symptoms (Recalled from RN notes): Yes Resp Symptoms (Recalled from RN notes): Yes Skin Symptoms (Recalled from RN notes): No MS Symptoms (Recalled from RN notes): No Functional Status (Recalled from RN notes): WNL History of Present Illness Provider Complaint: Patient states that he has been having sinus pain and pressure chest congestion and low grade fever on and off for about a week States that today he was having pressure again behind his eyes so he came in to get it checked Related Data Home Medications Medication Instructions Recorded Confirmed atorvastatin 40 mg tablet 40 mg PO HS High cholesterol 04/04/20 04/05/20 fenofibrate 160 mg tablet 160 mg PO DAILY High cholesterol 04/04/20 04/04/20 lisinopril 5 mg tablet 5 mg PO DAILY High blood pressure 04/04/20 04/04/20 albuterol sulfate 90 mcg/actuation 2 puffs PO Q6H PRN Shortness Of 04/05/20 04/05/20 aerosol inhaler Breath fluticasone propionate 50 1 spray NS DAILY Allergies 04/05/20 04/05/20 mcg/actuation nasal spray,suspension insulin glargine 100 unit/mL (3 10 units SQ DAILY Diabetes 04/05/20 04/05/20 mL) subcutaneous
[2022-03-06 11:35] VITALS: BP 133/79; PULSE 85; RESP 18; TEMP 36.7; O2SAT 96
== END 2022-03-06 11:39 | disposition home or self-care (01) ==
PROVIDERS: Emergency Provider Nurse Practitioner; PCP Internal Medicine Adolescent Medicine
DX: R06.02 Shortness of breath (principal); R50.9 Fever, unspecified; R11.0 Nausea; R09.89 Other specified symptoms and signs involving the circulatory and respiratory systems; R51.9 Headache, unspecified; I10 Essential (primary) hypertension; E78.5 Hyperlipidemia, unspecified; E11.9 Type 2 diabetes mellitus without complications; Z79.1 Long term (current) use of non-steroidal anti-inflammatories (NSAID); Z79.4 Long term (current) use of insulin; Z79.51 Long term (current) use of inhaled steroids; Z79.84 Long term (current) use of oral hypoglycemic drugs; Z79.899 Other long term (current) drug therapy; Z88.8 Allergy status to other drugs, medicaments and biological substances; Z87.442 Personal history of urinary calculi
CPT/HCPCS: 99212; G0463

== ENCOUNTER 2024-11-19 08:50 | Outpatient (CLI) | payer BC, SELFPAY ==
--- OUTSIDE RECORDS SUMMARY | 2024-10-29 15:45 | XMS_ITS | Encounter Summary ---
Author Organization [facility] Address [address] [place] [address] Care Team Providers Care Compliance Reviewer Name Role Phone Erum Alanabaljeet Crum APRN Primary Care Provid er Reason for Visit * Reason Comments Uncontrolled type 2 diabetes mellitus with hyperglycemia 6 month follow upHas pancreatitis flare last weekFelt better controlled with Jentadueto Hyperlipidemia Encounter Details Date Type Department Care Team (Late st Contact Info) Description 10/29/2024 3:45 PM EDT Office Visit [facility] ENDOCRINOLOGY [address] [place] [id number] Farida Horner PA-C [address] [place], [place] [id number] Uncontrolled type 2 diabetes mellitus with hyperglycemia (Primary Dx); Mixed hyperlipidemia; Pancreatic insufficiency Social History Tobacco Use Types Packs/Day Years Used Date Smoking Tobacco: Never Smokeless Tobacco: Never Tobacco Cessation:Counseling Given: Not Answered Alcohol Use Standard Drinks/Week Comments Never 0 (1 standard drink = 0.6 oz pur e alcohol) Sex and Gender Information Value Date Recorded Sex Assigned at Not on file Legal Sex Male 2:21 PM EDT Gender Identity Not on file Sexual Orientation Not on file documented as of this encounter Last Filed Vital Signs Vital Sign Reading Time Taken Comments Blood Pressure 134/79 10/29/2024 3:31 PM EDT Pulse 87 10/29/2024 3:31 PM EDT Temperature - - Respiratory Rate - - Oxygen Saturation 97% 10/29/2024 3:31 PM EDT Inhaled Oxygen Concentration - - Weight 114 kg (251 lb) 10/29/2024 3:31 PM EDT Height 188 cm (6' 2 ) 10/29/2024 3:31 PM EDT Body Mass Index 32.23 10/29/2024 3:31 PM EDT documented in this encounter Patient Instructions * Patient Instructions* Farida Horner PA-C - 10/29/2024 3:45 PM EDT Diabetes [facility]: 10/29/24 ADA General Goals: A1c: < 7% Your A1C is Lab Results Component Value Date HGBA1C 7.8 (A) 10/29/2024 HGBA1C 9.4 (A) 03/29/2024 HGBA1C 7.7 (A) 09/24/2023 Fasting/before meal glucose: <150 mg/dL 2 Hour after meal glucoses: < 180 mg/dL Bedtime glucose:120-180 Glucose testing frequency: daily before insulin use Medication Changes: - Continue Jardiance 25 mg once daily Saxagliptin-metformin 2.5-1000 mg ER 2 tablets daily Insulin dosing: Basal insulin (Long acting) Lantus 66 units at bedtime Increase by 2 units every 3 days if fasting blood sugar is more than 140. Keep at current dose if fasting blood sugar is between 90-139. Decrease by 2 units if fasting blood sugar is less than 90 or concerns for hypoglycemia overnight or between meals. Mealtime/Bolus Insulin (Short acting) Novolog 2 units before meals if blood sugar is more than 150.Add additional correction insulin if blood sugar before meal is more than 200: If skipping meal/4 hours since last injection and blood sugar is above 150 use correction insulin only: Correction insulin (add to meal insulin) 0 unit if glucose less than 150 2 unit if glucose 150 - 199 4 units if glucose 200 - 249 6 units if glucose 250 - 299 8 units if glucose 300 - 349 10 units if glucose Greater than 350 Keep records of your glucose levels and insulin adjustments. We may ask you to keep records on the content of your meals with insulin doses and before/after meal glucose levels to evaluate your ratios. Call for advice if you have unexplained or unexpected hypoglycemia (glucose < 70) or persistent high glucose > 250. Office: [phone] Farida Horner PA-C documented in this encounter Progress Notes * Farida Horner PA-C - 10/29/2024 4:28 PM EDTAssociated Problem(s): Pancreatic insufficiency Will send for refill of Creon. Encouraged to continue follow-up with GI. * Farida Horner PA-C - 10/29/2024 3:47 PM EDTAssociated Problem(s): Hyperlipidemia Encourage efforts towards improving blood sugar control. Repeat lipid panel Consider increase Lipitor if continues elevated Rx: lipitor 40, vascepa, fenofibrate 160 mg, Vascepa 1 g 2 capsules twice daily * Farida Horner PA-C - 10/29/2024 3:46 PM EDTAssociated Problem(s): Uncontrolled type 2 diabetes mellitus with hyperglycemia Diabetes is not controlled. A1C is 7.8% Discussed starting additional bolus insulin. Patient agreeable to trying as needed if blood sugars are elevated before dinner. Discussed stopping saxagliptin given history of pancreatitis; would like to continue medication at this time. Advised taking 1 tablet twice daily Rx: Saxagliptin-metformin 2.5-1000 mg ER 2 tablets daily in morning and evening Jardiance 25 mg daily Basal insulin (Long acting) Lantus 66 units at bedtime Increase by 2 units every 3 days if fasting blood sugar is more than 140. Keep at current dose if fasting blood sugar is between 90-139. Decrease by 2 units if fasting blood sugar is less than 90 or concerns for hypoglycemia overnight or between meals. Mealtime/Bolus Insulin (Short acting) Novolog 2 units before meals if blood sugar is more than 150.Add additional correction insulin if blood sugar before meal is more than 200: If skipping meal/4 hours since last injection and blood sugar is above 150 use correction insulin only: Correction insulin (add to meal insulin) 0 unit if glucose less than 150 2 unit if glucose 150 - 199 4 units if glucose 200 - 249 6 units if glucose 250 - 299 8 units if glucose 300 - 349 10 units if glucose Greater than 350 Cautioned risk for hypoglycemia; advised glucose supplement as needed. Foot exam today. Mild decrease sensation bilaterally, mild callus. Without ulceration. Microalbumin/cr: Ordered Eye exam due, retinopathy screen in office today without evidence of diabetic retinopathy. BP near goal <130/80; continue lisinopril 5 mg Discussed complications associated with diabetes. Encouraged continued effort toward lifestyle management: Increase lean protein and vegetable intake Avoid concentrated sugar drinks, such as sodas, and processed carbs including crackers, cookies, cakes Routine physical activity. * Farida Horner PA-C - 10/29/2024 3:45 PM EDT Chief Complaint Patient presents with Uncontrolled type 2 diabetes mellitus with hyperglycemia 6 month follow up Has pancreatitis flare last week [place] better controlled with Jentadueto Hyperlipidemia HPI Jan Michael is a 54 y.o. male presents today for follow-up evaluation of diabetes. They were lastseen for this 03/2024 by another provider in clinic. Hemoglobin A1C Date Value Ref Range Status 10/29/2024 7.8 (A) 4.5 - 5.7 % Final Taking Lantus 62 units Jardiance 25 mg Saxagliptin-metformin 2.5-1000 mg ER 2 tablets daily (switched from jentadueto around 06/2024) Mono was previously tolerating linagliptin-metformin combination better with better blood sugar control, but switched due to insurance. - BG at home: fasting 120-150; 140-170 - BP at home: not checking - Admits intermittent abdominal pain he associates with pancreatitis flares. Reports has been on Creon in past for pancreatic insufficiency but has been out of medication - Admits mild intermittent numbness in toes. Denies open sores. - Denies hypoglycemia. - Denies vision changes. -Denies heartburn/reflux, constipation, diarrhea - Denies increased thirst or urination. - Denies burning with urination. - Denies SOB, chest pain. Diet: Meals: snacking throughout day Breakfast: apple Lunch/dinner: protein/cho/vegetable Drinks: water, diet soda Exercise: Active most days yard work Type 2 Diabetes: Diagnosed with diabetes: mid 40s Complications: hx chronic pancreatitis Current regimen includes: Lantus Saxagliptin-metformin 2.5-1000 mg Jardiance 25 mg daily Past medications: Farxiga (nausea and abdominal pain, tried for a month) - HTN: lisinopril 5 mg - HLD: lipitor 40 mg, fenofibrate 160 mg, Vascepa 1 g 2 capsules twice daily - Aspirin: DM Health Maintenance: Ophthalmology: retinopathy scan completed 09/2023 Monofilament / Foot exam: today Urine microalbumin: due LDL: 69, triglyceride: 719, total cholesterol: 208, 09/25/2023 The following portions of the patient's history were reviewed and updated as appropriate: allergies, current medications, past family history, past medical history, past social history, past surgicalhistory and problem list. Past Medical History: Diagnosis Date Fatty liver High cholesterol Pancreatitis Type 2 diabetes mellitus Past Surgical History: Procedure Laterality Date CHOLECYSTECTOMY NASAL SEPTUM SURGERY Family History Problem Relation Age of Onset Diabetes Mother Diabetes Father Social History Socioeconomic History Marital status: Single Tobacco Use Smoking status: Never Smokeless tobacco: Never Vaping Use Vaping status: Never Used Substance and Sexual Activity Alcohol use: Never Drug use: Never Sexual activity: Defer No Known Allergies Current Outpatient Medications on File Prior to Visit Medication Sig Dispense Refill atorvastatin (LIPITOR) 40 MG tablet Take 1 tablet by mouth every night at bedtime. 90 tablet 1 BD Pen Needle Anu 2nd Gen 32G X 4 MM misc Use daily 100 each 3 diazePAM (VALIUM) 5 MG tablet Take 1 tablet by mouth As Needed. sAXagliptin-metFORMIN ER 2.5-1000 MG tablet sustained-release 24 hour Take 2 tablets by mouth Daily. Change from Jentadueto due to formulary preference 180 tablet 1 No current facility-administered medications on file prior to visit. Review of Systems Constitutional: Negative for activity change, appetite change, unexpected weight gain and unexpected weight loss. Eyes: Negative for visual disturbance. Respiratory: Negative for shortness of breath. Cardiovascular: Negative for chest pain. Gastrointestinal: Positive for abdominal pain. Negative for constipation and diarrhea. Endocrine: Negative for polydipsia and polyuria. Skin: Negative for wound. Neurological: Positive for numbness. Negative for dizziness. BP 134/79 (BP Location: Left arm, Patient Position: Sitting, Cuff Size: Adult) Pulse 87 Ht 188 cm (74 ) Wt 114 kg (251 lb) SpO2 97% BMI 32.23 kg/m?? Physical Exam Constitutional: Appearance: Normal appearance. He is obese. Cardiovascular: Rate and Rhythm: Normal rate and regular rhythm. Pulses: Dorsalis pedis pulses are 2+ on the right side and 2+ on the left side. Posterior tibial pulses are 2+ on the right side and 2+ on the left side. Pulmonary: Effort: Pulmonary effort is normal. Musculoskeletal: General: Normal range of motion. Right foot: No deformity. Left foot: No deformity. Feet: Right foot: Protective Sensation: 5 sites tested. 4 sites sensed. Skin integrity: Callus present. No ulcer. Toenail Condition: Right toenails are normal. Left foot: Protective Sensation: 5 sites tested. 3 sites sensed. Skin integrity: Callus present. No ulcer. Toenail Condition: Left toenails are normal. Comments: Diabetic Foot Exam Performed and Monofilament Test Performed Skin: General: Skin is warm and dry. Neurological: General: No focal deficit present. Mental Status: He is alert and oriented to person, place, and time. Psychiatric: Mood and Affect: Mood normal. Behavior: Behavior normal. LABS AND IMAGING CMP: Lab Results Component Value Date Glucose 126 (H) 10/29/2024 Glucose 149 (A) 10/29/2024 BUN 18.0 10/29/2024 BUN/Creatinine Ratio 14.1 10/29/2024 Creatinine 1.28 (H) 10/29/2024 Creatinine, Urine 64.2 10/29/2024 eGFR 66.9 10/29/2024 CO2 21.0 (L) 10/29/2024 Calcium 10.5 10/29/2024 Albumin 4.6 10/29/2024 AST (SGOT) 46 (H) 10/29/2024 ALT (SGPT) 38 10/29/2024 Lipid Panel: Lab Results Component Value Date CHOL 250 (H) 10/29/2024 TRIG 1,567 (H) 10/29/2024 HDL 18 (L) 10/29/2024 VLDL 10/29/2024 Comment: Unable to calculate LDL 10/29/2024 Comment: Unable to calculate LDL 37 10/29/2024 HbA1c: Hemoglobin A1C Date Value Ref Range Status 10/29/2024 7.8 (A) 4.5 - 5.7 % Final Glucose: Lab Results Component Value Date POCGLU 149 (A) 10/29/2024 Microalbumin: Lab Results Component Value Date MALBCRERATIO 10/29/2024 Comment: Unable to calculate TSH: Lab Results Component Value Date TSH 1.720 10/29/2024 Assessment and Plan Diagnoses and all orders for this visit: 1. Uncontrolled type 2 diabetes mellitus with hyperglycemia (Primary) Assessment & Plan: Diabetes is not controlled. A1C is 7.8% Discussed starting additional bolus insulin. Patient agreeable to trying as needed if blood sugars are elevated before dinner. Discussed stopping saxagliptin given history of pancreatitis; would like to continue medication at this time. Advised taking 1 tablet twice daily Rx: Saxagliptin-metformin 2.5-1000 mg ER 2 tablets daily in morning and evening Jardiance 25 mg daily Basal insulin (Long acting) Lantus 66 units at bedtime Increase by 2 units every 3 days if fasting blood sugar is more than 140. Keep at current dose if fasting blood sugar is between 90-139. Decrease by 2 units if fasting blood sugar is less than 90 or concerns for hypoglycemia overnight or between meals. Mealtime/Bolus Insulin (Short acting) Novolog 2 units before meals if blood sugar is more than 150.Add additional correction insulin if blood sugar before meal is more than 200: If skipping meal/4 hours since last injection and blood sugar is above 150 use correction insulin only: Correction insulin (add to meal insulin) 0 unit if glucose less than 150 2 unit if glucose 150 - 199 4 units if glucose 200 - 249 6 units if glucose 250 - 299 8 units if glucose 300 - 349 10 units if glucose Greater than 350 Cautioned risk for hypoglycemia; advised glucose supplement as needed. Foot exam today. Mild decrease sensation bilaterally, mild callus. Without ulceration. Microalbumin/cr: Ordered Eye exam due, retinopathy screen in office today without evidence of diabetic retinopathy. BP near goal <130/80; continue lisinopril 5 mg Discussed complications associated with diabetes. Encouraged continued effort toward lifestyle management: Increase lean protein and vegetable intake Avoid concentrated sugar drinks, such as sodas, and processed carbs including crackers, cookies, cakes Routine physical activity. Orders: - POC Glycosylated Hemoglobin (Hb A1C) - POC Glucose, Blood - Comprehensive Metabolic Panel - Microalbumin / Creatinine Urine Ratio - Urine, Clean Catch - Lipid Panel - TSH - Vitamin B12 - empagliflozin (Jardiance) 25 MG tablet tablet; Take 1 tablet by mouth Daily. Dispense: 90 tablet;Refill: 0 - Lantus SoloStar 100 UNIT/ML injection pen; Inject 66 Units under the skin into the appropriate area as directed Daily. Titrate as needed. Max daily dose 70 units. Dispense: 54 mL; Refill: 1 - Continuous Glucose Sensor (FreeStyle Kirill 3 Plus Sensor); Change sensor every 15 days, place rx on hold for now Dispense: 2 each; Refill: 11 - LDL Cholesterol, Direct 2. Mixed hyperlipidemia Assessment & Plan: Encourage efforts towards improving blood sugar control. Repeat lipid panel Consider increase Lipitor if continues elevated Rx: lipitor 40, vascepa, fenofibrate 160 mg, Vascepa 1 g 2 capsules twice daily 3. Pancreatic insufficiency Assessment & Plan: Will send for refill of Creon. Encouraged to continue follow-up with GI. Other orders - insulin aspart (NovoLOG FlexPen) 100 UNIT/ML solution pen-injector sc pen; Inject 2 Units under the skin into the appropriate area as directed 3 (Three) Times a Day With Meals. If blood sugar is more than 150. Add additional 2 units for every 50 mg/dl. Max daily dose 30 units Dispense: 15 mL; Refill: 1 - Glucagon 1 MG/0.2ML solution auto-injector; Inject 1 each under the skin into the appropriate area as directed As Needed (severe hypoglycemia). Dispense: 1 mL; Refill: 0 - fenofibrate 160 MG tablet; Take 1 tablet by mouth Daily. Dispense: 90 tablet; Refill: 2 - lisinopril (PRINIVIL,ZESTRIL) 5 MG tablet; Take 1 tablet by mouth Daily. Dispense: 90 tablet; Refill: 2 - Vascepa 1 g capsule capsule; Take 2 g by mouth 2 (Two) Times a Day With Meals. Dispense: 360 capsule; Refill: 2 - pancrelipase, [id number], (Creon) [id number] units capsule delayed-release particles capsule;Take 1 capsule by mouth 3 (Three) Times a Day With Meals. Dispense: 90 capsule; Refill: 2 Return in about 3 months (around 01/29/2025) for follow-up diabetes. The patient was instructed to contact the clinic with any interval questions or concerns. Electronically signed by: Farida Horner PA-C Endocrinology Please note that portions of this note were completed with a voice recognition program. documented in this encounter Plan of Treatment Upcoming Encounters Date Type Department Care Team (Late st Contact Info) Description 03/07/2025 2:15 PM EST Office Visit [facility] ENDOCRINOLOGY [address] [place] [address] Farida Horner PA-C [address] [place] [address] documented as of this encounter Procedures Procedure Name Priority Date/Time Associated Diagnosis Comments MICROALBUMIN / CREATININE URINE RATIO Routine 10/29/2024 4:22 PM EDT Uncontrolled type 2 diabetes mellitus with hyperglycemia TSH Routine 10/29/2024 4:22 PM EDT Uncontrolled type 2 diabetes mellitus with hyperglycemia LDL CHOLESTEROL, DIRECT Routine 10/29/2024 4:22 PM EDT Uncontrolled type 2 diabetes mellitus with hyperglycemia VITAMIN B12 Routine 10/29/2024 4:22 PM EDT Uncontrolled type 2 diabetes mellitus with hyperglycemia LIPID PANEL Routine 10/29/2024 4:22 PM EDT Uncontrolled type 2 diabetes mellitus with hyperglycemia COMPREHENSIVE METABOLIC PANEL Routine 10/29/2024 4:22 PM EDT Uncontrolled type 2 diabetes mellitus with hyperglycemia POCT GLUCOSE, BLD (NON STRIP) Routine 10/29/2024 3:44 PM EDT Uncontrolled type 2 diabetes mellitus with hyperglycemia POCT GLYCOSYLATED HEMOGLOBIN (HGB A1C) Routine 10/29/2024 3:44 PM EDT Uncontrolled type 2 diabetes mellitus with hyperglycemia documented in this encounter Results * LDL Cholesterol, Direct (10/29/2024 4:22 PM EDT) Pathologist [facility] LDL Cholesterol 37 0 - 100 mg/dL 10/30/2024 3:17 AM EDT LABORATORY Blood Venipuncture / Unknown 10/29/2024 4:22 PM EDT 10/29/2024 4:22 PM EDT [facility] LABORATORY - 10/30/2024 3:17 AM EDT LDL Reference Ranges (U.S. Department of Health and Human Services ATP III Classifications) Optimal <100 mg/dl Near Optimal 100-129 mg/dl Borderline High 130-159 mg/dl High 160-189 mg/dl Very High >189 mg/dl us Farida Horner PA-C LAB BLOOD ORDERABLES Final Re sult LABORATORY
[address] [place] [address], * Vitamin B12 (10/29/2024 4:22 PM EDT) Pathologist [facility] Vitamin B-12 481 211 - 946 pg/mL 10/30/2024 2:56 AM EDT LABORATORY Blood Structure of right upper limb / Unknown Venipuncture / Unknown 10/29/2024 4:22 PM EDT 10/29/2024 4:22 PM EDT [facility] LABORATORY - 10/30/2024 2:56 AM EDT Results may be falsely increased if patient taking Biotin. us Farida Horner PA-C LAB BLOOD ORDERABLES Final Re sult Performing Organization Address City/[facility]/ZIP Co de Phone Number LABORATORY
[address] [place] [address], * TSH (10/29/2024 4:22 PM EDT) Pathologist [facility] TSH 1.720 0.270 - 4.200 uIU/mL 10/30/2024 2:51 AM EDT LABORATORY Blood Venipuncture / Unknown 10/29/2024 4:22 PM EDT 10/29/2024 4:22 PM EDT Farida Evens KUHN LAB BLOOD ORDERABLES Final Re sul Performing Organization Address City/[facility] Co de Phone Number LABORATORY
[address] [place] [address], * (ABNORMAL) Lipid Panel (10/29/2024 4:22 PM EDT) [facility] Total Cholesterol 250(H) 0 - 200 mg/dL 10/30/2024 3:01 AM EDT LABORATORY Triglycerides 1,567(H) 0 - 150 mg/dL 10/30/2024 3:01 AM EDT LABORATORY HDL Cholesterol 18(L) 40 - 60 mg/dL 10/30/2024 3:01 AM EDT LABORATORY Comment:Triglyceride result >1200 mg/dL. HDL result may be affected. Calculated results will not be reported. LDL Cholesterol 3:01 AM EDT LABORATORY Comment:Unable to calculate VLDL Cholesterol 10/31/19 3:01 AM EDT LABORATORY Comment:Unable to calculate LDL/HDL Ratio 10/30/2024 3:01 AM EDT LABORATORY Comment:Unable to calculate Blood Venipuncture / Unknown 10/29/2024 4:22 PM EDT 10/29/2024 4:22 PM EDT Narrative LABORATORY - 10/30/2024 3:01 AM EDT Cholesterol Reference Ranges (U.S. Department of Health and Human Services ATP III Classifications) Desirable <200 mg/dL Borderline High 200-239 mg/dL High Risk >240 mg/dL Triglyceride Reference Ranges (U.S. Department of Health and Human Services ATP III Classifications) Normal <150 mg/dL Borderline High 150-199 mg/dL High 200-499 mg/dL Very High >500 mg/dL HDL Reference Ranges (U.S. Department of Health and Human Services ATP III Classifications) Low <40 mg/dl (major risk factor for CHD) High >60 mg/dl ('negative' risk factor for CHD) LDL Reference Ranges (U.S. Department of Health and Human Services ATP III Classifications) Optimal <100 mg/dL Near Optimal 100-129 mg/dL Borderline High 130-159 mg/dL High 160-189 mg/dL Very High >189 mg/dL LDL is calculated using the NIH LDL-C calculation. Farida Horner PA-C LAB BLOOD ORDERABLES Final Re sult LABORATORY
[address] [place] [address], * Microalbumin / Creatinine Urine Ratio - Urine, Clean Catch (10/29/2024 4:22 PM EDT) Microalbumin/C reatinine Ratio 10/30/2024 2:39 AM EDT LABORATORY Comment:Unable to calculate Creatinine, Urine 64.2 mg/dL 10/30/2024 2:39 AM EDT LABORATORY Microalbumin, Urine <1.2 mg/dL 10/30/2024 2:39 AM EDT LABORATORY Urine Urine specimen obtained by clean catch procedure / Unknown Collection / Unknown 10/29/2024 4:22 PM EDT 10/29/2024 4:22 PM EDT Farida Horner PA-C URINE ORDERABLES Final Result LABORATORY
[address] [place] [address], * (ABNORMAL) Comprehensive Metabolic Panel (10/29/2024 4:22 PM EDT) [facility] Glucose 126(H) 65 - 99 mg/dL 10/30/2024 4:28 AM [facility] LABORATORY BUN 18.0 6.0 - 20.0 mg/dL 10/30/2024 4:28 AM [facility] Creatinine 1.28(H) 0.76 - 1.27 mg/dL 10/30/2024 4:28 AM [facility] Sodium 139 136 - 145 mmol/L 10/30/2024 4:28 AM [facility] Potassium 4.2 3.5 - 5.2 mmol/L 10/30/2024 4:28 AM [facility] Chloride 100 98 - 107 mmol/L 10/30/2024 4:28 AM [facility] CO2 21.0(L) 22.0 - 29.0 mmol/L 10/30/2024 4:28 AM [facility] Calcium 10.5 8.6 - 10.5 mg/dL 10/30/2024 4:28 AM [facility] Total Protein 7.7 6.0 - 8.5 g/dL 10/30/2024 4:28 AM [facility] Albumin 4.6 3.5 - 5.2 g/dL 10/30/2024 4:28 AM [facility] ALT (SGPT) 38 1 - 41 U/L 10/30/2024 4:28 AM [facility] AST (SGOT) 46(H) 1 - 40 U/L 10/30/2024 4:28 AM [facility] Alkaline Phosphatase 53 39 - 117 U/L 10/30/2024 4:28 AM [facility] Total Bilirubin 0.6 0.0 - 1.2 mg/dL 10/30/2024 4:28 AM [facility] Globulin 3.1 gm/dL 10/30/2024 4:28 AM EDT LABORATORY A/G Ratio 1.5 g/dL 10/30/2024 4:28 AM EDT LABORATORY BUN/Creatinine Ratio 14.1 7.0 - 25.0 10/30/2024 4:28 AM EDT LABORATORY Anion Gap 18.0(H) 5.0 - 15.0 mmol/L 10/30/2024 4:28 AM EDT LABORATORY eGFR 66.9 >60.0 mL/min/1.7 3 10/30/2024 4:28 AM EDT LABORATORY Blood Venipuncture / Unknown 10/29/2024 4:22 PM EDT 10/29/2024 4:22 PM EDT Narrative LABORATORY - 10/30/2024 4:28 AM EDT GFR Categories in Chronic Kidney Disease (CKD) GFR Category GFR (mL/min/1.73) Interpretation G1 90 or greater Normal or high (1) G2 60-89 Mild decrease (1) G3a 45-59 Mild to moderate decrease G3b 30-44 Moderate to severe decrease G4 15-29 Severe decrease G5 14 or less Kidney failure (1)In the absence of evidence of kidney disease, neither GFR category G1 or G2 fulfill the criteria for CKD. eGFR calculation 2020 CKD-EPI creatinine equation, which does not include race as a factor Farida Horner PA-C LAB BLOOD ORDERABLES Final Re sult LABORATORY
[address] [place] [address], * (ABNORMAL) POC Glucose, Blood (10/29/2024 3:44 PM EDT) Glucose 149(A) 70 - 130 mg/dL Lot Number [id number] Expiration Date 05/04/2025 Blood 10/29/2024 3:44 PM EDT Farida Horner PA-C POINT OF CARE TEST ORDERABLES Final Result * (ABNORMAL) POC Glycosylated Hemoglobin (Hb A1C) (10/29/2024 3:44 PM EDT) Hemoglobin A1C 7.8(A) 4.5 - 5.7 % [facility] LABORAT[facility] Lot Number [phone] [facility] Expiration Date 06/29/2026 [facility] Blood 10/29/2024 3:44 PM EDT Farida Horner PA-C POINT OF CARE TEST ORDERABLES Final Result [facility]
[address] [place] [id number], documented in this encounter Visit Diagnoses Diagnosis Uncontrolled type 2 diabetes mellitus with hyperglycemia- Primary Mixed hyperlipidemia Pancreatic insufficiency Other specified disease of pancreas documented in this encounter Care Teams Compliance Reviewer Relationship Specialty Start Date End Date Alana Danielson APRN [address] [facility] [address] [place] [address] PCP - General Family Medicine 06/18/22 documented as of this encounter
--- OUTSIDE RECORDS SUMMARY | 2024-11-19 08:55 | XMS_ITS | Encounter Summary ---
Author Organization [facility] Address [address] [place] [address] Care Team Providers Care Laboratory Development Technician Name Role Phone Alana Danielson ELTON Primary Care Provid er Encounter Details Date Type Department Care Team (Late st Contact Info) Description 11/02/2024 Telephone [facility] [address] [place] [address] Farida Horner PA-C [address] [place] [address] Social History Tobacco Use Types Packs/Day Years Used Date Smoking Tobacco: Never Smokeless Tobacco: Never Alcohol Use Standard Drinks/Week Comments Never 0 (1 standard drink = 0.6 oz pur e alcohol) Sex and Gender Information Value Date Recorded Sex Assigned at Not on file Legal Sex Male 2:21 PM EDT Gender Identity Not on file Sexual Orientation Not on file documented as of this encounter Miscellaneous Notes * Telephone Encounter - Anna Cisse MA - 11/02/2024 9:19 AM EDT Please advise on labs * Telephone Encounter - Paramjit Tamayo PCT - 11/02/2024 9:15 AM EDT PT CALLED REQUESTING TO CONSULT ON RECENT LABS. documented in this encounter Plan of Treatment Upcoming Encounters Date Type Department Care Team (Late st Contact Info) Description 03/07/2025 2:15 PM EST Office Visit [facility] [address] [phone] Fariad Horner PA-C [address] [facility] [address] [place] [address] documented as of this encounter Visit Diagnoses Not on filedocumented in this encounter Care Teams Laboratory Development Technician Relationship Specialty Start Date End Date Alana Danielson APRN [address] [facility] [address] [facility] [address] [place] [address] PCP - General Family Medicine 06/18/22 documented as of this encounter
--- OUTSIDE RECORDS SUMMARY | 2024-11-19 08:55 | XMS_ITS | Encounter Summary ---
Author Organization [facility] Address [address] [place] [address] Care Team Providers Care Rn Observation Name Role Phone Alana Danielson ELTON Primary Care Provid er Encounter Details Date Type Department Care Team (Late st Contact Info) Description 11/02/2024 Results Follow-Up [facility] [address] [place] [address] Farida Horner PA-C [address] [place] [address] Social History Tobacco Use Types [...] encounter Miscellaneous Notes * Telephone Encounter - Farida Horner PA-C - 11/02/2024 9:45 AM EDT Spoke with patient regards to recent labs with elevated anion gap. Discussed suggestive of acid buildup in blood. Possible side effect of Jardiance use, saxagliptin, hypertriglyceridemia/pancreatitis. Advise decreasing Jardiance to 1/2 tablet. Advised stopping saxagliptin-metformin combination and switching to metformin 500 mg ER 2 tablets twice daily. Continue titration of insulin as discussed at visit. Discussed increasing atorvastatin to see if can help additionally with lowering triglyceride, continue fenofibrate and Vascepa. Cautioned risk for worsening abdominal pain, nausea, vomiting, loose stools muscle aches/cramping, fluctuating blood sugars or additional concerns with medication adjustments. Encouraged efforts towards increasing fluid intake/staying well-hydrated. Advise repeat labs in 1 to 2 weeks for continued monitoring. Requesting lab orders to be mailed. Advised to notify office after having labs done if outside of a [facility] facility. Patient agreeable to plan. * Telephone Encounter - Farida Horner PA-C - 11/02/2024 8:51 AM EDT Attempted to contact patient in regard to recent labs; no answer; left message to return call. documented in this encounter Plan of Treatment Upcoming Encounters Date Type Department Care Team (Late st Contact Info) Description 03/07/2025 2:15 PM EST Office Visit [facility] [address] [facility] [address] [place] [address] Farida Horner PA-C [address] [place] [address] documented as of this encounter Visit Diagnoses Not on filedocumented in this encounter Care Teams Rn Observation Relationship Specialty Start Date End Date Alana Danielson APRN [address] [facility] [address] [place] [address] PCP - General Family Medicine 06/18/22 documented as of this encounter
--- OUTSIDE RECORDS SUMMARY | 2024-11-19 08:55 | XMS_ITS | Clinical Summary ---
[facility] Address [address] [place] [address] Care Team Providers Care Labor And Employment Paralegal Name Role Phone Alana Danielson ELTON Primary Care Provid er Allergies No known active allergies Medications diazePAM (VALIUM) 5 MG tablet Take 1 tablet by mouth As Needed. 023 Active BD Pen Needle Anu 2nd Gen 32G X 4 MM miscIndications:U ncontrolled type 2 diabetes mellitus with hyperglycemia Use daily 100 each 3 024 Active insulin aspart (NovoLOG FlexPen) 100 UNIT/ML solution pen-injector sc pen Inject 2 Units under the skin into the appropriate area as directed 3 (Three) Times a Day With Meals. If blood sugar is more than 150. Add additional 2 units for every 50 mg/dl. Max daily dose 30 units 15 mL 1 025 Active Glucagon 1 MG/0.2ML solution auto-injector Inject 1 each under the skin into the appropriate area as directed As Needed (severe hypoglycemia). 1 mL 025 Active fenofibrate 160 MG tablet Take 1 tablet by mouth Daily. 90 tablet 2 025 Active lisinopril (PRINIVIL,ZESTRIL ) 5 MG tablet Take 1 tablet by mouth Daily. 90 tablet 2 025 Active Vascepa 1 g capsule capsule Take 2 g by mouth 2 (Two) Times a Day With Meals. 360 capsule 2 025 Active Lantus SoloStar 100 UNIT/ML injection penIndications:Un controlled type 2 diabetes mellitus with hyperglycemia Inject 66 Units under the skin into the appropriate area as directed Daily. Titrate as needed. Max daily dose 70 units. 54 mL 1 07/11/2 025 Active pancrelipase, Jjg-Gcjp-Ygnk, (Creon) [address] units capsule delayed-release particles capsule Take 1 capsule by mouth 3 (Three) Times a Day With Meals. 90 capsule 2 Active Continuous Glucose Sensor (FreeStyle Kirill 3 Plus Sensor)Indication s:Uncontrolled type 2 diabetes mellitus with hyperglycemia Change sensor every 15 days, place rx on hold for now 2 each Active atorvastatin (Lipitor) 80 MG tablet Take 1 tablet by mouth Daily. 90 tablet 025 2025 Active empagliflozin (Jardiance) 25 MG tablet tabletIndications :Uncontrolled type 2 diabetes mellitus with hyperglycemia Take 0.5 tablets by mouth Daily. Active metFORMIN ER (GLUCOPHAGE-XR) 500 MG 24 hr tablet Take 2 tablets by mouth 2 (Two) Times a Day With Meals. 360 tablet Active fenofibrate 160 MG tablet Take 1 tablet by mouth Daily. 023 2024 Discontinued(R eorder) Vascepa 1 g capsule capsule Take 2 g by mouth 2 (Two) Times a Day With Meals. 023 2024 Discontinued(R eorder) lisinopril (PRINIVIL,ZESTRIL ) 5 MG tablet Take 1 tablet by mouth Daily. 023 2024 Discontinued(R eorder) Continuous Glucose Sensor (FreeStyle Kirill 3 Plus Sensor)Indication s:Uncontrolled type 2 diabetes mellitus with hyperglycemia Change sensor every 15 days, place rx on hold for now 2 each 2024 Discontinued(R eorder) Lantus SoloStar 100 UNIT/ML injection penIndications:Un controlled type 2 diabetes mellitus with hyperglycemia Inject 60 Units under the skin into the appropriate area as directed Daily. 54 mL 1 024 2024 Discontinued(R eorder) atorvastatin (LIPITOR) 40 MG tabletIndications :Mixed hyperlipidemia Take 1 tablet by mouth every night at bedtime. 90 tablet 1 024 2024 Discontinued(D ose adjustment) sAXagliptin-metFO RMIN ER 2.5-1000 MG tablet sustained-release 24 hour Take 2 tablets by mouth Daily. Change from Valoriedujacek due to formulary preference 180 tablet 1 025 2024 Discontinued Jardiance 25 MG tablet tabletIndications :Uncontrolled type 2 diabetes mellitus with hyperglycemia TAKE 1 TABLET BY MOUTH DAILY 90 tablet 025 2024 Discontinued(R sebastian) empagliflozin (Jardiance) 25 MG tablet tabletIndications :Uncontrolled type 2 diabetes mellitus with hyperglycemia Take 1 tablet by mouth Daily. 90 tablet 025 2024 Discontinued Active Problems Problem Noted Date Diagnosed Date Uncontrolled type 2 diabetes mellitus with hyper glycemia 10/29/2024 Assessment & Plan (11/01/2024 12:58 PM EDT): Diabetes is not controlled. A1C is 7.8% [...] meals if blood sugar is more than 150. Add additional correction insulin if blood sugar before [...] including crackers, cookies, cakes Routine physical activity. Hyperlipidemia 10/29/2024 Assessment & Plan (10/29/2024 4:20 PM EDT): Encourage efforts towards improving blood sugar control. Repeat lipid panel Consider increase Lipitor if continues elevated Rx: lipitor 40, vascepa, fenofibrate 160 mg, Vascepa 1 g 2 capsules twice daily Pancreatic insufficiency 10/29/2024 Assessment & Plan (10/29/2024 4:28 PM EDT): Will send for refill of Creon. Encouraged to continue follow-up with GI. Encounters Date Type Department Care Team Description 11/02/2024 Telephone [facility] [address] [place] [address] Farida Horner PA-C 11/02/2024 Results Follow-Up [facility] [address] [facility] [address] [place] [address] Farida Horner PA-C 10/29/2024 3:45 PM EDT Office Visit [facility] [address] [place] [address] Farida Horner PA-C Uncontrolled type 2 diabetes mellitus with hyperglycemia (Primary Dx); Mixed hyperlipidemia; Pancreatic insufficiency 10/29/2024 Travel 09/15/2024 Refill [facility] [address] [place] [address] Destiny Hooker PA-C Uncontrolled type 2 diabetes mellitus with hyperglycemia 09/15/2024 Refill [facility] [address] [place] [address] Destiny Hooker PA-C Uncontrolled type 2 diabetes mellitus with hyperglycemia from Last 3 Months Immunizations Immunization Administration Dates Next Due 31-influenza Vac Quardvalent Preservativ 017 Fluzone (or Fluarix & Flulav al for VFC) >6mos 02/27/2023,02/13/2021,02/18/2018 Hepatitis A 02/18/2018 Pneumococcal Polysaccharide (PPSV23) 04/05/2020 Tdap 06/13/2022 Family History Medical History Relation Name Comments Diabetes Father Diabetes Mother Relation Name Status Comments Father Alive Mother Alive Social History Tobacco Use Types Packs/Day Years [...] on file Sexual Orientation Not on file Last Filed Vital Signs Vital Sign Reading Time Taken Comments Blood Pressure 134/79 10/29/2024 3:31 PM EDT Pulse 87 10/29/2024 3:31 PM EDT Temperature - - Respiratory Rate 16 03/29/2024 3:29 PM EST Oxygen Saturation 97% 10/29/2024 3:31 PM EDT Inhaled Oxygen Concentration - - Weight 114 kg (251 lb) 10/29/2024 3:31 PM EDT Height 188 cm (6' 2 ) 10/29/2024 3:31 PM EDT Body Mass Index 32.23 10/29/2024 3:31 PM EDT Plan of Treatment Upcoming Encounters Date Type Department Care Team (Late st Contact Info) Description 03/07/2025 2:15 PM EST Office Visit [facility] [address] [place] [address] Farida Horner PA-C [address] [place] [address] Health Maintenance Due Date Last Done Comments Hepatitis B (1 of 3 - 19+ 3- dose series) 08/24/1990 COLOGUARD 08/24/2016 COLON CANCER SCREENING 5 YEA R SIGMOIDOSCOPY 08/24/2016 COLONOSCOPY 08/24/2016 COLORECTAL CANCER SCREENING 08/24/2016 CT COLONOGRAPHY 08/24/2016 FECAL OCCULT BLOOD TEST 08/24/2016 FIT Testing (1 year) 08/24/2016 Pneumococcal Vaccine 50+ (2 of 2 - PCV) 04/05/2021 04/05/2020 ZOSTER VACCINE (1 of 2) 08/24/2021 ANNUAL PHYSICAL 12/09/2022 HEPATITIS C SCREENING 12/09/2022 COVID-19 Vaccine (3 - 2023-2 5 season) 2023 06/09/2020, 05/10/2020 INFLUENZA VACCINE 01/19/2025 02/27/2023, , 02/18/2018, Additional history exists HEMOGLOBIN A1C 05/01/2025 10/29/2024, 12/0 12/2023, 09/24/2023, Additional history exists DIABETIC EYE EXAM 10/29/2025 10/29/2024, 09/24/2023 DIABETIC FOOT EXAM 10/29/2025 10/29/2024, 0 10/29/2024, 10/29/2024, Additional history exists LIPID PANEL 10/29/2025 10/29/2024, 0704/2024, 09/24/2023 URINE MICROALBUMIN-CREATININ E RATIO (uACR) 10/30/2025 10/30/2024 TDAP/TD VACCINES (2 - Td or Tdap) 06/13/2032 023 Procedures Procedure Name Priority Date/Time Associated Diagnosis Comments LDL CHOLESTEROL, DIRECT Routine 10/29/2024 4:22 PM EDT Uncontrolled type 2 diabetes mellitus with hyperglycemia VITAMIN B12 Routine 10/29/2024 4:22 PM EDT Uncontrolled type 2 diabetes mellitus with hyperglycemia TSH Routine 10/29/2024 4:22 PM EDT Uncontrolled type 2 diabetes mellitus with hyperglycemia LIPID PANEL Routine 10/29/2024 4:22 PM EDT Uncontrolled type 2 diabetes mellitus with hyperglycemia MICROALBUMIN / CREATININE URINE RATIO Routine 10/29/2024 [...] Uncontrolled type 2 diabetes mellitus with hyperglycemia SCANNED - EYE EXAM 10/29/2024 from Last 3 Months Results * Microalbumin / Creatinine Urine Ratio - Urine, Clean Catch (10/29/2024 4:22 PM EDT) Microalbumin/C reatinine Ratio 10/30/2024 2:39 AM EDT [facility] Comment:Unable to calculate Creatinine, Urine 64.2 mg/dL 10/30/2024 2:39 AM EDT [facility] Microalbumin, Urine <1.2 mg/dL 10/30/2024 2:39 AM EDT [facility] Urine Urine specimen obtained by clean catch procedure / Unknown Collection / Unknown 10/29/2024 4:22 PM EDT 10/29/2024 4:22 PM EDT us Farida Horner PA-C URINE ORDERABLES Final Result Performing Organization Address City/[facility]/ZIP Co de Phone Number [facility]
[address] [place] [address], * TSH (10/29/2024 4:22 PM EDT) TSH 1.720 0.270 - 4.200 uIU/mL 10/30/2024 2:51 AM EDT [facility] Blood Venipuncture / Unknown 10/29/2024 4:22 PM EDT 10/29/2024 4:22 PM EDT Farida Horner PA-C LAB BLOOD ORDERABLES Final Re sult [facility]
[address] [place] [address], * LDL Cholesterol, Direct (10/29/2024 4:22 PM EDT) [facility] LDL Cholesterol 37 0 - 100 mg/dL 10/30/2024 3:17 AM EDT [facility] Blood Venipuncture / Unknown 10/29/2024 4:22 PM EDT 10/29/2024 4:22 PM EDT Narrative [facility] - 10/30/2024 3:17 AM EDT LDL Reference Ranges (U.S. Department of Health and Human Services ATP III Classifications) Optimal <100 mg/dl Near Optimal 100-129 mg/dl Borderline High 130-159 mg/dl High 160-189 mg/dl Very High >189 mg/dl Farida Horner PA-C LAB BLOOD ORDERABLES Final Re sult Performing Organization Address City/[facility]/ZIP Co de Phone Number [facility]
[address] [place] [address], * Vitamin B12 (10/29/2024 4:22 PM EDT) [facility] Vitamin B-12 481 211 - 946 pg/mL 10/30/2024 2:56 AM EDT [facility] Blood Structure of right upper limb / Unknown Venipuncture / Unknown 10/29/2024 4:22 PM EDT 10/29/2024 4:22 PM EDT Narrative [facility] - 10/30/2024 2:56 AM EDT Results may be falsely increased if patient taking Biotin. Farida PRIEST-Sonia LAB BLOOD ORDERABLES Final Re sult [facility]
[address] [place] [address], * (ABNORMAL) Lipid Panel (10/29/2024 4:22 PM EDT) Total Cholesterol 250(H) 0 - 200 mg/dL 10/30/2024 3:01 AM EDT [facility] Triglycerides 1,567(H) 0 - 150 mg/dL 10/30/2024 3:01 AM EDT [facility] HDL Cholesterol 18(L) 40 - 60 mg/dL 10/30/2024 3:01 AM T [facility] Comment:Triglyceride result >1200 mg/dL. HDL result may be affected. Calculated results will not be reported. LDL Cholesterol 3:01 AM EDT [facility] Comment:Unable to calculate VLDL Cholesterol 10/31/19 3:01 AM [facility] Comment:Unable to calculate LDL/HDL Ratio 10/30/2024 3:01 AM T [facility] Comment:Unable to calculate Blood Venipuncture / Unknown 10/29/2024 4:22 PM EDT 10/29/2024 4:22 PM EDT Narrative [facility] - 10/30/2024 3:01 AM EDT Cholesterol [...] is calculated using the NIH LDL-C calculation. us Farida Horner PA-C LAB BLOOD ORDERABLES Final Re sult [facility]
[address] [place] [address], * (ABNORMAL) Comprehensive Metabolic Panel (10/29/2024 4:22 PM EDT) Glucose 126(H) 65 - 99 mg/dL 10/30/2024 4:28 AM EDT [facility] BUN 18.0 6.0 - 20.0 mg/dL 10/30/2024 4:28 AM EDT [facility] Creatinine 1.28(H) 0.76 - 1.27 mg/dL 10/30/2024 4:28 AM EDT [facility] Sodium 139 136 - 145 mmol/L 10/30/2024 4:28 AM EDT [facility] Potassium 4.2 3.5 - 5.2 mmol/L 10/30/2024 4:28 AM EDT [facility] Chloride 100 98 - 107 mmol/L 10/30/2024 4:28 AM EDT [facility] CO2 21.0(L) 22.0 - 29.0 mmol/L 10/30/2024 4:28 AM EDT [facility] Calcium 10.5 8.6 - 10.5 mg/dL 10/30/2024 4:28 AM EDT [facility] Total Protein 7.7 6.0 - 8.5 g/dL 10/30/2024 4:28 AM EDT [facility] Albumin 4.6 3.5 - 5.2 g/dL 10/30/2024 4:28 AM EDT [facility] ALT (SGPT) 38 1 - 41 U/L 10/30/2024 4:28 AM EDT [facility] AST (SGOT) 46(H) 1 - 40 U/L 10/30/2024 4:28 AM EDT [facility] Alkaline Phosphatase 53 39 - 117 U/L 10/30/2024 4:28 AM EDT [facility] Total Bilirubin 0.6 0.0 - 1.2 mg/dL 10/30/2024 4:28 AM EDT [facility] Globulin 3.1 gm/dL 10/30/2024 4:28 AM EDT [facility] A/G Ratio 1.5 g/dL 10/30/2024 4:28 AM EDT [facility] BUN/Creatinine Ratio 14.1 7.0 - 25.0 10/30/2024 4:28 AM EDT [facility] Anion Gap 18.0(H) 5.0 - 15.0 mmol/L 10/30/2024 4:28 AM EDT [facility] eGFR 66.9 >60.0 mL/min/1.7 3 10/30/2024 4:28 AM EDT [facility] Blood Venipuncture / Unknown 10/29/2024 4:22 PM EDT 10/29/2024 4:22 PM EDT [facility] - 10/30/2024 4:28 AM EDT GFR [...] PA-C LAB BLOOD ORDERABLES Final Re sult [facility]
[address] [place] [address], * (ABNORMAL) POC Glucose, Blood (10/29/2024 3:44 PM EDT) Glucose 149(A) 70 - 130 mg/dL Lot Number [id number] Expiration Date 05/04/2025 Blood 10/29/2024 3:44 PM EDT Farida Horner PA-C POINT OF CARE TEST ORDERABLES Final Result * (ABNORMAL) POC Glycosylated Hemoglobin (Hb A1C) (10/29/2024 3:44 PM EDT) Hemoglobin A1C 7.8(A) 4.5 - 5.7 % [facility] Lot Number [id number] [facility] Expiration Date 06/29/2026 [facility] Blood 10/29/2024 3:44 PM EDT Farida Horner PA-C POINT OF CARE TEST ORDERABLES Final Result [facility]
[address] [place] [address], * EYE EXAM SCANNED (10/29/2024) Anatomical Region Laterality Modality Other Kenrick Ames MD CHART REVIEW TABS Thelma donny Result from Last 3 Months Insurance EMPLOYEE Care Teams Labor And Employment Paralegal Relationship Specialty Start Date End Date Alana Danielson APRN [address] [place] [address] PCP - General Family Medicine 06/18/22
--- OUTSIDE RECORDS SUMMARY | 2024-11-19 08:55 | XMS_ITS | Encounter Summary ---
[facility] Address [address] [place] [id number] Care Team Providers Care Toe Former Name Role Phone Alana Danielson APRN Primary Care Provid er Encounter Details Date Type Department Care Team (Latest Contact Info) Description 10/29/2024 Travel Social History Tobacco Use Types Packs/Day Years [...] on file documented as of this encounter Plan of Treatment Upcoming Encounters Date Type Department Care Team (Late st Contact Info) Description 03/07/2025 2:15 PM EST Office Visit [facility] [address] [place] [address] Farida Horner PA-C [address] [place] [address] documented as of this encounter Visit Diagnoses Not on filedocumented in this encounter Care Teams Toe Former Relationship Specialty Start Date End Date Alana Danielson APRN [address] [place] [address] PCP - General Family Medicine 06/18/22 documented as of this encounter
[2024-11-19 08:57] LABS: Microscopic, Urine URINE MICROSCOPIC (MICROSCOPIC)
[2024-11-19 09:51] LABS: Alanine Aminotransferase 46 U/L (12-78); Albumin Level 4.6 g/dl (3.5-5.0); Albumin/Globulin Ratio 1.6 (1.1-1.8); Alkaline Phosphatase 45 U/L (38-126); Anion Gap 14.0 mEq/L (5-15); Aspartate Amino Transferase 70 U/L (17-59); Bilirubin,Total 1.6 mg/dl (0.2-1.3); Blood Urea Nitrogen 19 mg/dl (9-20); Calcium 9.6 mg/dl (8.4-10.2); Carbon Dioxide 23 mmol/L (22.0-30.0); Chloride 104 mmol/L (98-107); Cholesterol 213 mg/dl (140-200); Creatinine,Serum 1.20 mg/dl (0.66-1.25); Estimated Glomerular Filt Rate 63 ml/min (>60); GFR (African American) 77 ML/MIN (>60); Globulin 2.8 g/dL (1.3-3.2); Glucose 189 mg/dl (74-100); HDL Cholesterol 17 mg/dl (40-60); Potassium 5.0 mmoL/L (3.5-5.1); Sodium 136 mmol/L (136-145); Total Protein,Serum 7.4 g/dl (6.3-8.2)
[2024-11-19 10:36] LABS: Bilirubin,Urine Negative (Negative); Color,Urine YELLOW (Yellow); Glucose,Urine (UA) 3+ (Negative); Ketones,Urine Negative (Negative); Leukocyte Esterase,Urine Negative (Negative); PH,Urine 6.0 (5.0-8.5); Protein,Urine Negative (Negative); Specific Gravity, Urine 1.015 (1.005-1.030); Urobilinogen,Urine 0.2 EU/dl (0.2)
[2024-11-19 11:42] LABS: Bacteria,Urine Trace /lpf; Squamous Epithelial Cell,Urine Occasional #/hpf (0-5)
[2024-11-19 13:01] LABS: Triglycerides 3527 mg/dl (30-150)
== END 2024-11-19 23:59 | disposition home or self-care (01) ==
LOC: LAB 08:53
PROVIDERS: PCP Nurse Practitioner Family; Visit Provider Physician Assistant
DX: E11.65 Type 2 diabetes mellitus with hyperglycemia (principal); E78.2 Mixed hyperlipidemia
CPT/HCPCS: 36415; 80053; 80061; 81001

== ENCOUNTER 2025-02-14 13:15 | Outpatient (CLI) | payer BC, SELFPAY ==
--- OUTSIDE RECORDS SUMMARY | 2025-02-15 11:24 | XMS_ITS | Clinical Summary ---
[facility] [address] [place] [address] Care Team Providers Care Neurophysiologist Name Role Phone ErumAlana giraldo Skyla ELTON Primary Care Provid er Allergies No known active allergies Medications diazePAM (VALIUM) 5 MG tablet Take 1 tablet by mouth As Needed. 09/04/19 23 Active BD Pen Needle Anu 2nd Gen 32G X 4 MM miscIndications: Uncontrolled type 2 diabetes mellitus with hyperglycemia Use daily 100 each 3 09/24/19 24 Active Glucagon 1 MG/0.2ML solution auto-injector Inject 1 each under the skin into the appropriate area as directed As Needed (severe hypoglycemia). 1 mL 10/30/19 25 Active fenofibrate 160 MG tablet Take 1 tablet by mouth Daily. 90 tablet 2 10/30/19 25 Active lisinopril (PRINIVIL,ZESTRI L) 5 MG tablet Take 1 tablet by mouth Daily. 90 tablet 2 10/30/19 25 Active Vascepa 1 g capsule capsule Take 2 g by mouth 2 (Two) Times a Day With Meals. 360 capsule 2 10/30/19 25 Active pancrelipase, Jgp-Dwvp-Lltc, (Creon) 63841-39685 units capsule delayed-release particles capsule Take 1 capsule by mouth 3 (Three) Times a Day With Meals. 90 capsule 2 10/30/19 25 Active Continuous Glucose Sensor (FreeStyle Kirill 3 Plus Sensor)Indicatio ns:Uncontrolled type 2 diabetes mellitus with hyperglycemia Change sensor every 15 days, place rx on hold for now 2 each 11 10/30/19 25 Active atorvastatin (Lipitor) 80 MG tablet Take 1 tablet by mouth Daily. 90 tablet 11/03/19 25 2025 Active empagliflozin (Jardiance) 25 MG tablet tabletIndication s:Uncontrolled type 2 diabetes mellitus with hyperglycemia Take 1 tablet by mouth Daily. 11/20/19 25 Active insulin aspart (NovoLOG FlexPen) 100 UNIT/ML solution pen-injector sc pen Inject 15 Units under the skin into the appropriate area as directed 3 (Three) Times a Day With Meals. If blood sugar is more than 150. Add additional 2 units for every 50 mg/dl. Max daily dose 80 units 72 mL 1 11/20/19 25 Active Lantus SoloStar 100 UNIT/ML injection penIndications:U ncontrolled type 2 diabetes mellitus with hyperglycemia Inject 80 Units under the skin into the appropriate area as directed Daily. Titrate as needed. Max daily dose 100 units. 90 mL 1 11/20/19 25 Active metFORMIN ER (GLUCOPHAGE-XR) 500 MG 24 hr tablet TAKE 2 TABLETS BY MOUTH TWICE DAILY WITH MEALS 120 tablet 02/12/20 25 Active metFORMIN ER (GLUCOPHAGE-XR) 500 MG 24 hr tablet TAKE 2 TABLETS BY MOUTH TWICE DAILY WITH MEALS 120 tablet 01/08/20 25 2024 Discontinued Active Problems Problem Noted Date [...] Encounters Date Type Department Care Team Description 02/11/2025 Refill [facility] [address] [place] [address] Farida Horner PA-C 02/10/2025 Refill [facility] [address] [place] [address] Farida Horner PA-C 01/10/2025 Refill [facility] [address] [place] [address] Farida Horner PA-C 01/07/2025 Refill [facility] [address] [place] [address] Farida Horner PA-C 11/19/2024 Results Follow-Up [facility] [address] [facility] [address] [place] [address] Farida Horner PA-C from Last 3 Months Immunizations Immunization Administration [...] Description 03/07/2025 2:15 PM EST Office Visit [facility] [address] [facility] [address] [place] [address] Farida Horner PA-C [address] [facility] [address] [place] [address] Health Maintenance Due Date Last Done Comments [...] ANNUAL PHYSICAL 12/09/2022 HEPATITIS C SCREENING 12/09/2022 INFLUENZA VACCINE 11/19/2024 02/27/2023, , 02/18/2018, Additional history exists HEMOGLOBIN A1C 05/01/2025 10/29/2024, 12/2023, 09/24/2023, Additional history exists DIABETIC EYE EXAM 10/29/2025 10/29/2024, 09/24/2023 DIABETIC FOOT EXAM 10/29/2025 10/29/2024, 0 10/29/2024, 10/29/2024, Additional history exists URINE MICROALBUMIN-CREATININ E RATIO (uACR) 10/30/2025 10/30/2024 LIPID PANEL 11/19/2025 11/19/2024, 10/19, 10/29/2024, Additional history exists TDAP/TD VACCINES (2 - Td or Tdap) 06/13/2032 023 Procedures Procedure Name Priority Date/Time Associated Diagnosis Comments LIPID PANEL Routine 11/19/2024 11:31 AM EDT Mixed hyperlipidemia URINALYSIS AND MICROSCOPIC Routine 11/19/2024 Uncontrolled type 2 diabetes mellitus with hyperglycemia COMPREHENSIVE METABOLIC PANEL Routine 11/19/2024 Uncontrolled type 2 diabetes mellitus with hyperglycemia POCT GLYCOSYLATED HEMOGLOBIN (HGB A1C) Routine 10/29/2024 3:44 PM EDT Uncontrolled type 2 diabetes mellitus with hyperglycemia SCANNED - EYE EXAM 10/29/2024 from Last 3 Months or Most Recently Relevant to Health Maintenance Results * Lipid Panel (11/19/2024 11:31 AM EDT) Blood us Farida PRIEST-C LAB BLOOD ORDERABLES Final Re sult Performing Organization Address [facility] Co de Phone Number [facility]
[address] [place] [address], * Urinalysis With Microscopic - Urine, Clean Catch (11/19/2024) Urine Urine specimen obtained by clean catch procedure / Unknown Farida PRIEST-C URINE ORDERABLES Final Result Performing Organization Address [facility] Co de Phone Number [facility]
[address] [place] [address], * Comprehensive Metabolic Panel (11/19/2024) Blood Farida PRIEST-C LAB BLOOD ORDERABLES Final Re sult Performing Organization Address [facility] Co de Phone Number [facility]
[address] [place] [address], * (ABNORMAL) POC Glycosylated Hemoglobin (Hb A1C) (10/29/2024 3:44 PM EDT) Hemoglobin A1C 7.8(A) 4.5 - 5.7 % [facility] Lot Number [id number] [facility] Expiration Date 06/29/2026 [facility] Blood 10/29/2024 3:44 PM EDT Farida PRIEST-C POINT OF CARE TEST ORDERABLES Final Result Performing Organization Address [facility] Co de Phone Number [facility]
[address] [place] [id number], [place] [phone] * EYE EXAM SCANNED (10/29/2024) Anatomical Region Laterality Modality Other Kenrick Ames MD CHART REVIEW TABS Thelma l Result from Last 3 Months or Most Recently Relevant to Health Maintenance Insurance [place] [id number] [employer] Care Teams Neurophysiologist Relationship Specialty Start Date End Date Alana Danielson APRN [address] [facility] [address] [place] [address] PCP - General Family Medicine 06/18/22
--- OUTSIDE RECORDS SUMMARY | 2025-02-15 11:24 | XMS_ITS | Encounter Summary ---
Author Organization [facility] Address [address] [place] [address] Care Team Providers Care Consumer Banker Name Role Phone Alana Danielson ELTON Primary Care Provid er Reason for Visit * Reason Comments Med Refill Encounter Details Date Type Department Care Team (Late st Contact Info) Description 02/10/2025 Refill [facility]CR[facility] [address] [place] [phone] Farida Horner PA-C [address] [place], [place] [id number] Social History Tobacco Use Types Packs/Day Years [...] encounter Miscellaneous Notes * Telephone Encounter - Dayanna Zavala MA - 02/10/2025 1:36 PM EDT Rx Refill Note Requested Prescriptions Pending Prescriptions Disp Refills metFORMIN ER (GLUCOPHAGE-XR) 500 MG 24 hr tablet [Pharmacy Med Name: METFORMIN ER 500MG 24HR TABS] 120 tablet 0 Sig: TAKE 2 TABLETS BY MOUTH TWICE DAILY WITH MEALS Last office visit with prescribing clinician: 10/29/2024 Next office visit with prescribing clinician: 03/07/2025 } Dayanna Zavala MA 02/10/25, 13:36 EDT documented in this encounter Plan of Treatment Upcoming Encounters Date Type Department Care Team (Late st Contact Info) Description 03/07/2025 2:15 PM EST Office Visit [facility] [address] [facility] [address] [place] [address] Farida Horner PA-C [address] [id number] documented as of this encounter Visit Diagnoses Not on filedocumented in this encounter Care Teams Consumer Banker Relationship Specialty Start Date End Date Alana Danielson APRN [facility] [address] [facility] [address] [place] [address] PCP - General Family Medicine 06/18/22 documented as of this encounter
--- OUTSIDE RECORDS SUMMARY | 2025-02-15 11:24 | XMS_ITS | Encounter Summary ---
Author Organization [facility] Address [address] [place] [address] Care Team Providers Care [employer] Combination Teacher Name Role Phone Alana Danielson ELTON Primary Care Provid er Reason for Visit * Reason Comments Med Refill Encounter Details Date Type Department Care Team (Late st Contact Info) Description 01/07/2025 Refill [facility] [address] [place] [phone] Farida Horner PA-C [address] [place] [address] Social History Tobacco Use Types [...] encounter Miscellaneous Notes * Telephone Encounter - Sarahi Vega MA - 01/07/2025 11:41 AM EDT Rx Refill Note Requested Prescriptions Pending Prescriptions Disp Refills metFORMIN ER (GLUCOPHAGE-XR) 500 MG 24 hr tablet [Pharmacy Med Name: METFORMIN ER 500MG 24HR TABS] 120 tablet 0 Sig: TAKE 2 TABLETS BY MOUTH TWICE DAILY WITH MEALS Last office visit with prescribing clinician: 10/29/2024 Next office visit with prescribing clinician: 03/07/2025 Sarahi Vega MA 01/07/25, 11:41 EDT documented in this encounter Plan of Treatment Upcoming Encounters Date Type Department Care Team (Late st Contact Info) Description 03/07/2025 2:15 PM EST Office Visit [facility] [address] [facility] 100 [place] [address] Farida Horner PA-C [address] [facility] [address] [place] [address] documented as of this encounter Visit Diagnoses Not on filedocumented in this encounter Care Teams [employer] Comb[employer] Teacher Relationship Specialty Start Date End Date Alana Danielson APRN [address] [facility] [address] [facility] [address] [place] [address] PCP - General Family Medicine 06/18/22 documented as of this encounter
--- OUTSIDE RECORDS SUMMARY | 2025-02-15 11:24 | XMS_ITS | Encounter Summary ---
[facility] Address [address] [place] [address] Care Team Providers Care Aircraft Part Assembler Name Role Phone Alana Danielson APRN Primary Care Provid er Reason for Visit * Reason Comments Med Refill Encounter Details Date Type Department Care Team (Late st Contact Info) Description 01/10/2025 Refill [facility] ENDOCRIN[facility] [address] [place] [phone] Farida Horner PA-C [address] [place] [address] Social History Tobacco Use Types Packs/Day [...] Description 03/07/2025 2:15 PM EST Office Visit [facility]OCRIN[facility] [address] [place] [address] Farida Horner PA-C [address] [place] [address] documented as of this encounter Visit Diagnoses Not on filedocumented in this encounter Care Teams Aircraft Part Assembler Relationship Specialty Start Date End Date Alana Danielson APRN [address] [facility] [address] [place] [address] PCP - General Family Medicine 06/18/22 documented as of this encounter
--- OUTSIDE RECORDS SUMMARY | 2025-02-15 11:24 | XMS_ITS | Encounter Summary ---
[facility] Address [address] [place] [address] Care Team Providers Care Host/Hostess Ground Name Role Phone Alana Danielson ELTON Primary Care Provid er Reason for Visit * Reason Comments Med Refill Encounter Details Date Type Department Care Team (Late st Contact Info) Description 02/11/2025 Refill [facility] END[facility]CRIN[facility] [address] [place] [phone] Farida Horner PA-C [address] [place] [address] Social History Tobacco Use Types [...] encounter Miscellaneous Notes * Telephone Encounter - Nga De La Rosa MA - 02/11/2025 1:01 PM EDTSummary: refill Rx Refill Note Requested Prescriptions Pending Prescriptions Disp Refills metFORMIN ER (GLUCOPHAGE-XR) 500 MG 24 hr tablet [Pharmacy Med Name: METFORMIN ER 500MG 24HR TABS] 360 tablet Sig: TAKE 2 TABLETS BY MOUTH TWICE DAILY WITH MEALS Last office visit with prescribing clinician: 10/29/2024 Next office visit with prescribing clinician: 03/07/2025 Nga De La Rosa MA 02/11/25, 13:03 EDT documented in this encounter Plan of Treatment Upcoming Encounters Date Type Department Care Team (Late st Contact Info) Description 03/07/2025 2:15 PM EST Office Visit [facility] [address] [facility] 100 [place] [address] Farida Horner PA-C [address] [address] documented as of this encounter Visit Diagnoses Not on filedocumented in this encounter Care Teams Host/Hostess Ground Relationship Specialty Start Date End Date Alana Danielson APRN [facility]0 [facility] [address] [facility] [address] [place] [address] PCP - General Family Medicine 06/18/22 documented as of this encounter
== END 2025-02-14 23:59 | disposition home or self-care (01) ==
LOC: LAB.DROPOF 02-15 11:19
PROVIDERS: PCP Nurse Practitioner; Visit Provider Nurse Practitioner
DX: B02.21 Postherpetic geniculate ganglionitis (principal)
CPT/HCPCS: 87070